=== PATIENT | male | born 1940 | race Caucasian/White ===

== ENCOUNTER → 2016-09-10 | Outpatient (CLI) | payer OTHER ==
[2016-04-08 20:31] VITALS: BP 119/77
[~2016-09-10] MED LIST: NS 100 ML IV 100 ML IV ONE
[2016-09-10 08:57] LABS: CREATININE 0.97 mg/dL (0.70-1.30)
--- NOTE | 2016-09-10 11:46 | CT ---
HISTORY: Abnormal weight loss Study: CT abdomen pelvis with contrast Comparison: CT chest March 26, 2016, May 27, 2015 Technique: Axial post-contrast images with coronal and sagittal reformats. Dose reduction procedures were used with MA/kv adjusted for body size. Findings: Bibasilar fibrotic lung changes appear to be present. The liver is normal in size and configuration without significant focal space-occupying disease. There is a well-marginated nonenhancing low-atten uation 7.8 x 7.1 by 7 centimeter cystic lesion in the dome of the right lobe of the liver. This like ly represents a benign cyst and is unchanged when compared with prior chest examinations. Scattered smaller cysts are present. The spleen, adrenal glands, and pancreas are within normal limits. No opa que stones are visible within the gallbladder. The kidneys are unobstructed and without stones or ma sses. Bilateral simple cysts are present. No ureteral calculi are identified. No significant intrape ritoneal or retroperitoneal lymphadenopathy is identified. Calcific atherosclerotic changes present in the abdominal aorta where there is also a 3.15 by 2.56 centimeter saccular abdominal aortic aneur ysm just proximal to the bifurcation. There is some thrombus within it. There are no findings sugges tive of diverticulitis or colitis. No visible: Masses are identified. Examination of the pelvis demo nstrated no evidence for pelvic masses, pelvic fluid, or pelvic lymphadenopathy. No definite bladder abnormality is identified. No significant skeletal abnormality is identified. IMPRESSION: Large benign appearing stable right renal cysts with additional smaller surrounding cysts also uncha nged Bilateral renal cysts Saccular abdominal aortic aneurysm located just above the bifurcation and having a maximum diameter of 3.15 centimeters. Reported By:
== END ==
LOC: RAD 08:21
PROVIDERS: ATTEND Internal Medicine
DX: R63.4 Abnormal weight loss (principal)
CPT/HCPCS: 36415; 74177; 82565; 84520; A4222

== ENCOUNTER 2018-07-27 01:30 | Observation (INO) ==
[2018-07-27 01:53] VITALS: BMI 22.1
--- NOTE | 2018-07-27 02:58 | DR.CP ---
HPI Time Seen Time Seen by Provider: 07/27/18 02:56 PCP Primary Care Physician: HPI Comment HPI Comment: PATIENT IS 77YR OLD WHIITE MALE WITH HISTORY OF THORACIC AORTIC ANERYSM, COPD AND GERD THAT PRESENTED TO ED WITH CHEST PAIN. MEDS FOR IND IGESTION TRIED WITHOUT PAIN GOING AWAY. IN ED, PAIN SPONTAOUSLY RESOLVING. NO FEVER. PATIENT IS A SMOKER. Complaint Chief Complaint Doctor Comments: CHEST PAIN RADIATING TO STOMACH, BACK OF CHEST ANF RIGHT SHOULDER. Chief Complaint:: PT STATED HE HIS HURTING IN HIS STOMACH, RIGHT SHOULDER AND CHEST PAIN. Self Treatment fo Chief Complaint: PT HAS AN ANEURSYM IN HIS LOWER CHEST. TAKES XARELTO DAILY. Reviewed Nurses Notes Review: Yes Source History Provided: Patient and Family Member Mode of Arrival Mode of Arrival: Ambulatory Timing Onset of Chief Complaint: 07/27/18 Came on: Suddenly Pain: Present Now Duration Duration: Constant Duration: Hours Location Location of Chest Pain: Chest (lower substrenal and epigastric area.) Chest Pain Radiation Location: Right Arm and Abdomen Context Onset: At rest Cardiac Risk Factors: Smoker PE Risk Factors: None History of: None Prehospital Care: None Quality Quality: Pressure like and Heavy Severity Severity: Moderate Modifying Factors Worsens: Movement Impoves: Rest Associated Signs and Symptoms Associated Signs and Symptoms: None PMH PMH Past Medical History: Yes Past Medical History: Dementia Past Surgical History: Yes Surgical History: Appendectomy and Tonsillectomy Past Surgical History Comment: SKIN CANCER SURGERY Family History History of Family Medical Conditions: No Social History Does patient currently use any type of tobacco product: Yes Have you used tobacco products in the last 12 months: Yes Type of Tobacco Use: Cigarettes Does any household member use tobacco: No Alcohol Use: None Do you use any recreational Drugs:: No Lives With: Spouse Lives Where: Home infectious screening In the last 2 months have you had wt loss of >10#?: NO Have you had fever, night sweats or hemotysis?: No Have you traveled outside the country in the last 6 months?: No ROS Review of Systems Constitutional: Weakness Eyes: No Symptoms Reported ENTM: No Symptoms Reported Respiratoy: No Symptoms Reported Cardiovascular: No Symptoms Reported Gastrointestinal/Abdominal: No Symptoms Reported Genitourinary: No Symptoms Reported Neurological: Weakness Musculoskeletal: Shoulder (RT SHOULDER PAIN.) Integumentary: Change in Color and Other (SKIN CANCER WITH SKIN LESIONS.) Hematologic/Lymphatic: Easy Bruising Endocrine: Decreased Appetite Psychiatric: No Symptoms Reported All Other Systems: Reviewed and Negative Unable to Obtain Due To: Dementia PE Vitals Vitals: Temperature 97.6 F Pulse Rate 80 Respiratory Rate 18 Blood Pressure 107/68 O2 Sat by Pulse Oximetry 93 General Limitations: No Limitations General Appearance: Alert and In No Apparent Distress Head Head Exam: Normal Inspection Eyes Eye exam: Normal Appearance ENT ENT Exam: Normal Exam Chest Chest Inspection: Normal Inspection and Symmetric Chest Wall Rise Respiratory Respiratory Exam: Normal Lung Sounds Bilat Respiratory Exam: Bilateral: Rhonchi, Left: Rhonchi, Right: Rhonchi and Lower: Rhonchi Cardiovascular Cardiovascular Exam: Regular Rate and Normal Rhythm Pulse: Normal Edema: Normal Abdominal Exam Abdominal Exam: Normal Inspection, Normal Bowel Sounds and Soft Extremities Extremities Exam: Normal Inspection Back Back Exam: Normal Inspection Neurologic Neurological Exam: Alert, Oriented X3 and CN II-XII Intact; negative Motor Sensory Deficit Psychiatric Psychiatric Exam: Normal Affect and Normal Mood Skin Skin Exam: Warm, Dry, Intact and Normal Color MDM Additional Information Additional Information Obtained From: Old Records and Family Differential Diagnosis Differential Diagnosis: Angina, Chest Wall Pain, CHF, Costochondritis, Myocardial Infarction, Pericarditis, Pneumonia and Pneumothorax COURSE Treatment Treatment: SEE ORDERS. Education/Counseling Education/Counseling: Patient and Family Educated On: Diagnosis ROR Labs Reviewed Laboratory Results Reviewed?: Yes Result Diagrams: 07/27/18 03:09 07/27/18 03:09 Laboratory: WBC 10.2 X10^3/uL (3.6-10.0) H 07/27/18 03:09 RBC 5.82 X10^6/uL (4.7-6.0) 07/27/18 03:09 Hgb 16.4 g/dL (13.5-18.0) 07/27/18 03:09 Hct 48.8 % (42.0-54.0) 07/27/18 03:09 MCV 83.8 fL (80.0-100.0) 07/27/18 03:09 MCH 28.1 pg (27.0-34.0) 07/27/18 03:09 MCHC 33.6 g/dL (33.0-35.0) 07/27/18 03:09 RDW 14.8 % (11.6-16.5) 07/27/18 03:09 Plt Count 246 X10^3/uL (150.0-450.0) 07/27/18 03:09 MPV 8.8 fL (7.4-11.0) 07/27/18 03:09 Neut % (Auto) 84.2 % (42.0-75.0) H 07/27/18 03:09 Lymph % (Auto) 7.4 % (21.0-51.0) L 07/27/18 03:09 Elliott % (Auto) 7.5 % (0.0-13.0) 07/27/18 03:09 Eos % (Auto) 0.4 % (0.9-2.9) L 07/27/18 03:09 Baso % (Auto) 0.5 % (0.2-1.0) 07/27/18 03:09 Neut # (Auto) 8.6 x10^3/uL (2.2-4.8) H 07/27/18 03:09 Lymph # (Auto) 0.8 X10^3/uL (1.3-2.9) L 07/27/18 03:09 Elliott # (Auto) 0.8 x10^3/uL (0.3-0.8) 07/27/18 03:09 Eos # (Auto) 0.0 x10^3/uL (0.0-0.2) 07/27/18 03:09 Baso # (Auto) 0.1 X10^3/uL (0.0-0.1) 07/27/18 03:09 Absolute Nucleated RBC 0.2 /100WBC 07/27/18 03:09 Sodium 141 mmol/L (136-145) 07/27/18 03:09 Corrected Sodium 142 mmol/L (136-145) 07/27/18 03:09 Potassium 3.9 mmol/L (3.5-5.1) 07/27/18 03:09 Chloride 103 mmol/L (98-107) 07/27/18 03:09 Carbon Dioxide 28.4 mmol/L (21-32) 07/27/18 03:09 BUN 12 mg/dL (7-18) 07/27/18 03:09 Creatinine 1.10 mg/dL (0.70-1.30) 07/27/18 03:09 Est GFR (MDRD) Af Amer > 60 (>60) 07/27/18 03:09 Est GFR (MDRD) Non-Af > 60 (>60) 07/27/18 03:09 Glucose 150 mg/dL (65-99) H 07/27/18 03:09 Calcium 8.2 mg/dL (8.5-10.1) L 07/27/18 03:09 Corrected Calcium 8.9 mg/dL (8.5-10.1) 07/27/18 03:09 Total Bilirubin 0.60 mg/dL (0.2-1.0) 07/27/18 03:09 AST 60 Units/L (15-37) H 07/27/18 03:09 ALT 35 Units/L (12-78) 07/27/18 03:09 Alkaline Phosphatase 105 Units/L (46-116) 07/27/18 03:09 Creatine Kinase 82 Units/L (39-308) 07/27/18 03:09 CK-MB (CK-2) < 1.0 ng/mL (0-4.0) 07/27/18 03:09 CK/CKMB % Calc 1.2 % (<4) 07/27/18 03:09 Troponin I 0.02 ng/mL (0-1.5) 07/27/18 03:09 Total Protein 7.0 g/dL (6.4-8.2) 07/27/18 03:09 Albumin 3.1 g/dL (3.4-5.0) L 07/27/18 03:09 Globulin 3.9 g/dL (2.5-4.5) 07/27/18 03:09 Albumin/Globulin Ratio 0.8 Ratio (1.1-2.1) L 07/27/18 03:09 XRAY XRAY Interpreted by: Radiologist XRAY Findings: 4.2CM STABLE ASCENDING AORTIC ANEURYSM WITHOUT DISSECTION. ADVANCE EMPHYSEM EKG Rate: 60 Norris: LAD Rhythm: NSR Block: 1 Hypertrophy: None ST: Normal
[2018-07-27 03:23] LABS: BASOPHILS # (AUTO) 0.1 X10^3/uL (0.0-0.1); BASOPHILS % (AUTO) 0.5 % (0.2-1.0); EOSINOPHILS % (AUTO) 0.4 % (0.9-2.9); HEMATOCRIT 48.8 % (42.0-54.0); HEMOGLOBIN 16.4 g/dL (13.5-18.0); LYMPHOCYTES # (AUTO) 0.8 X10^3/uL (1.3-2.9); LYMPHOCYTES % (AUTO) 7.4 % (21.0-51.0); MEAN CORPUSCULAR HEMOGLOBIN 28.1 pg (27.0-34.0); MEAN CORPUSCULAR HGB CONC 33.6 g/dL (33.0-35.0); MEAN CORPUSCULAR VOLUME 83.8 fL (80.0-100.0); MEAN PLATELET VOLUME 8.8 fL (7.4-11.0); MONOCYTES # (AUTO) 0.8 x10^3/uL (0.3-0.8); MONOCYTES % (AUTO) 7.5 % (0.0-13.0); NEUTROPHILS # (AUTO) 8.6 x10^3/uL (2.2-4.8); NEUTROPHILS % (AUTO) 84.2 % (42.0-75.0); PLATELET COUNT 246 X10^3/uL (150.0-450.0); RED BLOOD COUNT 5.82 X10^6/uL (4.7-6.0); RED CELL DISTRIBUTION WIDTH 14.8 % (11.6-16.5); WHITE BLOOD COUNT 10.2 X10^3/uL (3.6-10.0)
[2018-07-27 03:35] LABS: BLOOD UREA NITROGEN 12 mg/dL (7-18); CALCIUM 8.2 mg/dL (8.5-10.1); CARBON DIOXIDE 28.4 mmol/L (21-32); CHLORIDE 103 mmol/L (98-107); COR NA(FOR HYPERGLY) 142 mmol/L (136-145); SODIUM 141 mmol/L (136-145); TROPONIN I 0.02 ng/mL (0-1.5); eGFR NON BLACK RACES > 60 (>60)
[2018-07-27 03:40] LABS: ALANINE AMINOTRANSFERASE 35 Units/L (12-78); ALBUMIN 3.1 g/dL (3.4-5.0); ALKALINE PHOSPHATASE 105 Units/L (46-116); ASPARTATE AMINO TRANSFERASE 60 Units/L (15-37); CKMB % 1.2 % (<4); COR CA(FOR HYPOALB) 8.9 mg/dL (8.5-10.1); CREATINE KINASE 82 Units/L (39-308); CREATINE KINASE MB < 1.0 ng/mL (0-4.0)
[2018-07-27] MEDS ORDERED: NS 100 ML IV + SPIKE MINIBAG* 100 ML ONE (04:47)
--- NOTE | 2018-07-27 05:32 | CT ---
CTA chest Indication: Chest pains Technique: Helical CT images of the chest were obtained with IV contrast. Reformatted images in the coronal and sagittal planes and 3D MIP images were also generated for review. Comparison: 03/26/2016 Findings: Contrast bolus timing is adequate for detection of PTE. No pulmonary thromboembolus is identified. There is no pulmonary arterial dilatation or evidence of right heart strain. Heart is mildly enlarged without significant pericardial effusion. Mild coronary atherosclerotic disease noted. There is a stable ascending thoracic aortic aneurysm, measuring 4.2 cm AP. No dissection is identified. The central airways are patent. There is no mediastinal bulky hilar lymphadenopathy. There is moderately advanced upper lobe predominant centrilobular emphysema. Chronic interstitial changes of the bilateral lung bases also noted. The lungs are otherwise clear without focal consolidation. No pleural effusion or pneumothorax is identified. Limited images of the upper abdomen demonstrate a stable large cyst within the right hepatic lobe. Review of bone windows demonstrate diffuse osteopenia and stable chronic compression fracture of the T12 vertebral body. No aggressive osseous lesions are identified. Impression: No PTE or acute cardiopulmonary abnormality. Stable 4.2 cm ascending thoracic aortic aneurysm without dissection. Advanced emphysema and additional chronic findings as above. Reported By:
[2018-07-27] MEDS: NS 1000 ML 1,000 ML IV SCH (10:06)
[2018-07-27] MEDS: PEPCID 20 MG IV PREMIX* 20 MG/50 ML BAG IV SCH ×2 (10:06→21:01)
[2018-07-27 10:39] LABS: CKMB % 1.6 % (<4); CREATINE KINASE 63 Units/L (39-308); TROPONIN I < 0.02 ng/mL (0-1.5)
--- NOTE | 2018-07-27 15:32 | DR.H&P ---
H&P - History & Physical for Day of: H&P Date: 07/27/18 - Chief Complaint Chief Complaint: CHEST PAIN - History of Present Illness History of Present Illness: 77 WM ER ADMISSON AFTER PRESENTING WITH CO CHEST PAIN. PT FAMILY DENIES HE HAS HX OF CAD, BUT PT CO PAIN SO SEVERE HE ASKED TO COME TO ER. PT DID TAKE "SODA WATER" EARILER WITH INCREASED BELCHING WITH SOME RELIEF. FAMILY REPORTS HE HAS HX OF STOMACH ULCER AND PT CO PAIN LIKE KNOT IN TOP OF STOMACH, SQUEEZING PRESSURE. PT ADMITTED TO [facility]. - Past Medical History Past Medical History: Anxiety, Dementia, GERD - Past Surgical History Surgical History: Appendectomy, Tonsillectomy - Family History Family Medical History: Cancer, ID, Sudden Cardiac , Hypertension - Social History Does patient currently use any type of tobacco product: Yes Have you used tobacco products in the last 12 months: Yes Type of Tobacco Use: Cigarettes How many years tobacco product used: 60 Does any household member use tobacco: No Alcohol Use: None Drug Use: None - Medications Home Medications: codeine Allergy (Verified 07/27/18 02:31) Sulfa (Sulfonamide Antibiotics) Allergy (Verified 07/27/18 02:31) CONTINUE taking the following medications anastrozole 1 mg PO DAILY 07/27/18 [History] ciprofloxacin HCl 500 mg PO BID 07/27/18 [History] cyproheptadine 4 mg PO BID 07/27/18 [History] duloxetine 30 mg PO HS 07/27/18 [History] finasteride 5 mg PO DAILY 07/27/18 [History] memantine 10 mg PO BID 07/27/18 [History] omeprazole 40 mg PO DAILY 07/27/18 [History] rivaroxaban [Xarelto] 10 mg PO DAILY 07/27/18 [History] - Review of Systems Constitutional: No Symptoms Reported Eyes: No Symptoms Reported ENT: No Symptoms Reported Respiratory: No Symptoms Reported Cardiovascular: Chest Pain Gastrointestinal: Abdominal Pain Genitourinary: No Symptoms Reported Musculoskeletal: No Symptoms Reported Skin: No Symptoms Reported Neurological: Weakness, Other (DIZZINESS ) - Physical Exam Vital Signs: Temperature 97.6 F Pulse Rate [Brachial] 60 Pulse Rate 80 Respiratory Rate 20 Blood Pressure [Right Arm] 136/73 Blood Pressure 107/68 O2 Sat by Pulse Oximetry 93 Oriented: Normal Eyes: Normal Ear: Normal Respiratory: RLL Diminished, LLL Diminished Cardiovascular: Normal. negative: Edema : Normal Auscultation: Bowel Sounds: Normal Palpation: Normal Tenderness: RUQ, Epigastric Skin: Decreased Turgur Musculoskeletal: Normal Psychiatric: Anxiety Affect: Anxious Speech Pattern: Clear, Appropriate - Assessment/Plan (1) Chest pain Status: Acute Plan: ADMIT, SERIAL CE AND EKG. BLOOD PRESSURE CONTROL. VERIFY HOME MEDICATION. PEPCID, NAUSEA CONTROL. CXR ON ADMISSION, OCCULT STOOL, GB US ON SATURDAY, NAUSEA CONTROL (2) GERD (gastroesophageal reflux disease) Status: Acute (3) Epigastric pain Status: Acute - Allergies Allergies/Adverse Reactions: Allergies Allergy/AdvReac Type Severity Reaction Status Date / Time codeine Allergy Verified 07/27/18 02:31 Sulfa (Sulfonamide Allergy Verified 07/27/18 02:31 Antibiotics)
[2018-07-27 15:55] LABS: AMYLASE 80 Units/L (25-115); LIPASE 164 Units/L (73-393)
[2018-07-27] MEDS: NAMENDA TAB 10 MG PO SCH ×2 (15:55→21:00)
[2018-07-27 16:08] LABS: CREATINE KINASE 59 Units/L (39-308); CREATINE KINASE MB < 1.0 ng/mL (0-4.0); TROPONIN I 0.02 ng/mL (0-1.5)
[2018-07-27 16:14] LABS: CKMB % 1.7 % (<4)
[2018-07-27] MEDS ORDERED: PROSCAR PO SCH (21:00)
[2018-07-27] MEDS: PERIACTIN TAB 4 MG PO SCH (21:00)
[2018-07-28 05:22] LABS: BASOPHILS # (AUTO) 0.1 X10^3/uL (0.0-0.1); BASOPHILS % (AUTO) 1.3 % (0.2-1.0); EOSINOPHILS # (AUTO) 0.1 x10^3/uL (0.0-0.2); EOSINOPHILS % (AUTO) 1.8 % (0.9-2.9); HEMATOCRIT 43.4 % (42.0-54.0); HEMOGLOBIN 14.7 g/dL (13.5-18.0); LYMPHOCYTES # (AUTO) 1.6 X10^3/uL (1.3-2.9); MEAN CORPUSCULAR HEMOGLOBIN 28.2 pg (27.0-34.0); MEAN CORPUSCULAR HGB CONC 33.8 g/dL (33.0-35.0); MEAN CORPUSCULAR VOLUME 83.4 fL (80.0-100.0); MEAN PLATELET VOLUME 8.9 fL (7.4-11.0); MONOCYTES # (AUTO) 0.7 x10^3/uL (0.3-0.8); MONOCYTES % (AUTO) 13.3 % (0.0-13.0); NEUTROPHILS # (AUTO) 2.9 x10^3/uL (2.2-4.8); NEUTROPHILS % (AUTO) 53.6 % (42.0-75.0); PLATELET COUNT 236 X10^3/uL (150.0-450.0); RED BLOOD COUNT 5.21 X10^6/uL (4.7-6.0); RED CELL DISTRIBUTION WIDTH 15.1 % (11.6-16.5); WHITE BLOOD COUNT 5.3 X10^3/uL (3.6-10.0)
[2018-07-28 05:37] LABS: ALANINE AMINOTRANSFERASE 24 Units/L (12-78); ALBUMIN 2.6 g/dL (3.4-5.0); ALKALINE PHOSPHATASE 87 Units/L (46-116); ASPARTATE AMINO TRANSFERASE 23 Units/L (15-37); BLOOD UREA NITROGEN 12 mg/dL (7-18); CALCIUM 7.8 mg/dL (8.5-10.1); CARBON DIOXIDE 27.1 mmol/L (21-32); CHLORIDE 105 mmol/L (98-107); COR CA(FOR HYPOALB) 8.9 mg/dL (8.5-10.1); CREATININE 0.95 mg/dL (0.70-1.30); SODIUM 140 mmol/L (136-145); eGFR NON BLACK RACES > 60 (>60)
[2018-07-28] MEDS: PERIACTIN TAB 4 MG PO SCH (08:58)
[2018-07-28] MEDS: NAMENDA TAB 10 MG PO SCH (08:58)
[2018-07-28] MEDS: PEPCID 20 MG IV PREMIX* 20 MG/50 ML BAG IV SCH (08:58)
[2018-07-28] MEDS ORDERED: PriLOSEC PO SCH (09:00)
[2018-07-28] MEDS ORDERED: ARIMIDEX PO SCH (09:00)
[2018-07-28] MEDS ORDERED: PROSCAR PO SCH (09:00)
[2018-07-28] MEDS: NS 1000 ML 1,000 ML IV SCH (09:02)
[2018-07-28 12:49] VITALS: BP 122/77
[2018-07-28] MEDS ORDERED: CYMBALTA PO SCH (21:00)
--- NOTE | 2018-08-14 00:10 | DR.CARTERD ---
- Discharge Summary for: Discharge Summary for Date of:: 07/28/18 - Admission Date Date of Admission: 07/27/18 - Admission Diagnoses Admission Diagnosis: (1) Chest pain (2) GERD (gastroesophageal reflux disease) (3) Epigastric pain - Discharge Date Discharge Date: 07/28/18 - Discharge Diagnoses Discharge Diagnosis: (1) Chest pain (2) GERD (gastroesophageal reflux disease) (3) Epigastric pain - Hospital Course Hospital Course: DAY ONE, PATIENT IS A 77 YEAR OLD WM ER ADMISSON AFTER PRESENTING WITH CO CHEST PAIN. PT FAMILY DENIED HE HAS HX OF CAD, BUT PT CO PAIN SO SEVERE HE ASKED TO COME TO ER. PT DID TAKE "SODA WATER" EARILER WITH INCREASED BELCHING WITH SOME RELIEF. FAMILY REPORTED HE HAS HX OF STOMACH ULCER AND PT CO PAIN LIKE KNOT IN TOP OF STOMACH, SQUEEZING PRESSURE. PT ADMITTED TO [facility]. DAY TWO, PATIENT LAYING IN BED ALERT AND ORIENTED ON MORNING ROUNDS. PATIENT DENIED CHEST PAIN AND REPORTED SYMPTOMS HAD RESOLVED. CARDIA ENZYMES HAVE BEEN NEGATIVE. ABNORMAL LAB VALUES INCLUDED CALCIUM 7.8. VITALS WERE 97.3, 60, 20, 93% ON RA, 128/79. WE PLANNED FOR DISCHARGE. INSTRUCTIONS FOR MEDICATIONS AND FOLLOW UP WERE DISCUSSED WITH PATIENT AND FAMILY, BOTH VOICED UNDERSTANDING. PATIENT DISCHARGED HOME IN STABLE CONDITION WITH FAMILY. - Discharge Medications Discharge Medications: Home Medication List Xarelto 10 mg PO DAILY 07/27/18 [History] anastrozole 1 mg PO DAILY 07/27/18 [History] ciprofloxacin HCl 500 mg PO BID 07/27/18 [History] cyproheptadine 4 mg PO BID 07/27/18 [History] duloxetine 30 mg PO HS 07/27/18 [History] finasteride 5 mg PO DAILY 07/27/18 [History] memantine 10 mg PO BID 07/27/18 [History] omeprazole 40 mg PO DAILY 07/27/18 [History] Prescriptions: - Discharge Disposition Discharge Disposition: PATIENT TO FOLLOW UP IN OUR OFFICE IN ONE WEEK.
== END 2018-07-28 14:00 | disposition home or self-care (01) ==
LOC: ER 01:38 → MED/SURG 01:38
PROVIDERS: ADMIT Internal Medicine; ATTEND Internal Medicine
DX: R26.89 Other abnormalities of gait and mobility; R07.89 Other chest pain; R10.13 Epigastric pain; J43.8 Other emphysema; Z87.19 Personal history of other diseases of the digestive system; F41.8 Other specified anxiety disorders; K21.9 Gastro-esophageal reflux disease without esophagitis; R94.31 Abnormal electrocardiogram [ECG] [EKG]
CPT/HCPCS: 36415; 71260; 76705; 80053; 82150; 82550; 82553; 83690; 84484; 85025; 93005; 94760; 96365; 96367; 96374; 97162; 97166; 99218; 99284; A4222; S0028; S0138; S0170; G0378; J7030; J7050

== ENCOUNTER 2018-11-24 12:52 | Inpatient (IN) ==
[2018-11-24] MEDS ORDERED: PHARMACY CONSULT - DOSE _____ XX SCH (14:00)
[2018-11-24 14:36] LABS: BASOPHILS % (AUTO) 0.8 % (0.2-1.0); EOSINOPHILS % (AUTO) 0.5 % (0.9-2.9); HEMATOCRIT 46.3 % (42.0-54.0); HEMOGLOBIN 15.5 g/dL (13.5-18.0); LYMPHOCYTES % (AUTO) 17.2 % (21.0-51.0); MEAN CORPUSCULAR HEMOGLOBIN 28.4 pg (27.0-34.0); MEAN CORPUSCULAR HGB CONC 33.5 g/dL (33.0-35.0); MEAN CORPUSCULAR VOLUME 84.6 fL (80.0-100.0); MEAN PLATELET VOLUME 8.5 fL (7.4-11.0); MONOCYTES # (AUTO) 0.6 x10^3/uL (0.3-0.8); MONOCYTES % (AUTO) 9.4 % (0.0-13.0); NEUTROPHILS # (AUTO) 4.2 x10^3/uL (2.2-4.8); NEUTROPHILS % (AUTO) 72.1 % (42.0-75.0); PLATELET COUNT 200 X10^3/uL (150.0-450.0); RED BLOOD COUNT 5.48 X10^6/uL (4.7-6.0); RED CELL DISTRIBUTION WIDTH 15.2 % (11.6-16.5); WHITE BLOOD COUNT 5.9 X10^3/uL (3.6-10.0)
[2018-11-24 14:50] LABS: ALANINE AMINOTRANSFERASE 12 Units/L (12-78); ALBUMIN 2.7 g/dL (3.4-5.0); ALKALINE PHOSPHATASE 87 Units/L (46-116); ASPARTATE AMINO TRANSFERASE 19 Units/L (15-37); BLOOD UREA NITROGEN 11 mg/dL (7-18); CALCIUM 8.5 mg/dL (8.5-10.1); CARBON DIOXIDE 24.2 mmol/L (21-32); CHLORIDE 103 mmol/L (98-107); COR CA(FOR HYPOALB) 9.5 mg/dL (8.5-10.1); COR NA(FOR HYPERGLY) 138 mmol/L (136-145); CREATININE 1.17 mg/dL (0.70-1.30); SODIUM 137 mmol/L (136-145); TOTAL PROTEIN 7.5 g/dL (6.4-8.2); eGFR NON BLACK RACES > 60 (>60)
[2018-11-24] MEDS ORDERED: MICRO K EXTEN CAP 10 MEQ PO PRN (15:00)
[2018-11-24] MEDS ORDERED: POTASSIUM CHL 60 MEQ/NS 0.45% 500 ML IV PRN (15:00)
[2018-11-24] MEDS ORDERED: KLOR-CON PO PRN (15:00)
[2018-11-24] MEDS ORDERED: POTASSIUM CHLORIDE LIQ 20 MEQ UDC PO PRN (15:00)
[2018-11-24] MEDS ORDERED: POTASSIUM CHL 40 MEQ/NS 0.45% 500 ML IV PRN (15:00)
[2018-11-24] MEDS ORDERED: K-RIDER 10 MEQ/NS 100 ML 10 MEQ/100 ML BAG IV PRN (15:00)
[2018-11-24] MEDS ORDERED: NS 1/2 1000 ML IV 1,000 ML ONE (15:07)
[2018-11-24] MEDS: NS 1/2 1000 ML IV 1,000 ML IV SCH (15:30)
[2018-11-24] MEDS: LEVAQUIN PREMIX IV 500 MG 500 MG/100 ML BAG IV SCH (15:30)
[2018-11-24] MEDS: ROBITUSSIN DM PO SCH ×2 (16:04→20:46)
[2018-11-24] MEDS: VSL#3 PO SCH (16:04)
[2018-11-24] MEDS ORDERED: SALINE 3% 15 ML NEB TX NEB ONE (16:41)
--- NOTE | 2018-11-24 17:19 | RAD ---
History: Pneumonia and cough Exam: Chest x-ray Comparison: None Technique: PA and lateral Findings: The heart is normal. The pulmonary vessels are normal. The lungs are mildly hyperinflated and emphysematous. There are mild linear densities scattered along the lung bases. No consolidation or effusion is seen. The bones are intact. IMPRESSION: Chronic obstructive lung changes with mild discoid atelectasis or scarring along the lung. Reported By:
[2018-11-24] MEDS: XOPENEX 1.25 MG/3 ML NEBULE NEB SCH (17:40)
[2018-11-24] MEDS: FORTAZ or TAZICEF VIAL INJ 1 G in NS 100 ML IV + SPIKE MINIBAG* 100 ML IV SCH (22:10)
[2018-11-25] MEDS: XOPENEX 1.25 MG/3 ML NEBULE NEB SCH ×5 (01:35→19:01)
[2018-11-25 04:28] LABS: BILIRUBIN,URINE 1+ (NEGATIVE); BLOOD/HEMOGLOBIN,URINE 1+ (NEGATIVE); GLUCOSE, URINE NEGATIVE (NEGATIVE); KETONES,URINE NEGATIVE (NEGATIVE); LEUKOCYTE ESTERASE ,URINE 1+ (NEGATIVE); NITRITES,URINE NEGATIVE (NEGATIVE); PROTEIN,URINE 2+ (NEGATIVE); UROBILINOGEN,URINE 2+ (NORMAL)
[2018-11-25 04:46] LABS: APPEARANCE,URINE CLEAR (CLEAR); COLOR,URINE AMBER (YELLOW)
[2018-11-25 04:47] LABS: BACTERIA,URINE NEGATIVE /HPF (NEGATIVE); RBC,URINE 0-2 /HPF (NONE SEEN); SQUAMOUS EPITHELIAL CELL,UR NEGATIVE /HPF (NEGATIVE)
[2018-11-25] MEDS ORDERED: NS 1/2 1000 ML IV 1,000 ML ONE (05:16)
[2018-11-25] MEDS: NS 1/2 1000 ML IV 1,000 ML IV SCH ×2 (05:31→18:04)
[2018-11-25] MEDS: FORTAZ or TAZICEF VIAL INJ 1 G in NS 100 ML IV + SPIKE MINIBAG* 100 ML IV SCH ×3 (05:32→22:14)
[2018-11-25 05:40] LABS: BASOPHILS % (AUTO) 0.6 % (0.2-1.0); EOSINOPHILS # (AUTO) 0.1 x10^3/uL (0.0-0.2); HEMATOCRIT 41.3 % (42.0-54.0); HEMOGLOBIN 14.2 g/dL (13.5-18.0); LYMPHOCYTES # (AUTO) 1.3 X10^3/uL (1.3-2.9); LYMPHOCYTES % (AUTO) 25.6 % (21.0-51.0); MEAN CORPUSCULAR HEMOGLOBIN 28.5 pg (27.0-34.0); MEAN CORPUSCULAR HGB CONC 34.3 g/dL (33.0-35.0); MEAN CORPUSCULAR VOLUME 83.1 fL (80.0-100.0); MEAN PLATELET VOLUME 8.8 fL (7.4-11.0); MONOCYTES # (AUTO) 0.9 x10^3/uL (0.3-0.8); NEUTROPHILS # (AUTO) 2.8 x10^3/uL (2.2-4.8); NEUTROPHILS % (AUTO) 54.8 % (42.0-75.0); PLATELET COUNT 168 X10^3/uL (150.0-450.0); RED BLOOD COUNT 4.97 X10^6/uL (4.7-6.0); RED CELL DISTRIBUTION WIDTH 14.9 % (11.6-16.5); WHITE BLOOD COUNT 5.1 X10^3/uL (3.6-10.0)
[2018-11-25 05:51] LABS: ALANINE AMINOTRANSFERASE 13 Units/L (12-78); ALBUMIN 2.4 g/dL (3.4-5.0); ALKALINE PHOSPHATASE 77 Units/L (46-116); ASPARTATE AMINO TRANSFERASE 17 Units/L (15-37); BLOOD UREA NITROGEN 10 mg/dL (7-18); CALCIUM 8.3 mg/dL (8.5-10.1); CARBON DIOXIDE 23.3 mmol/L (21-32); CHLORIDE 104 mmol/L (98-107); COR CA(FOR HYPOALB) 9.6 mg/dL (8.5-10.1); CREATININE 1.01 mg/dL (0.70-1.30); SODIUM 137 mmol/L (136-145); TOTAL PROTEIN 6.8 g/dL (6.4-8.2); eGFR NON BLACK RACES > 60 (>60)
--- NOTE | 2018-11-25 06:26 | RAD ---
HISTORY: Cough, pneumonia Study: Chest AP portable Comparison: 11/24/2018, CT chest 07/27/2018 Findings: The heart is within normal limits in size. The cliff are normal. The aorta is calcified the cliff are normal. The lungs are free of acute alveolar infiltrates. Chronic interstitial lung changes are stable. No pleural effusions are identified. The bony thorax is unremarkable. IMPRESSION: Stable chronic interstitial lung changes No acute infiltrates Reported By:
[2018-11-25] MEDS: K-DUR TAB 20 MEQ PO PRN (06:29)
[2018-11-25 07:43] VITALS: BMI 20.6
[2018-11-25] MEDS: LEVAQUIN PREMIX IV 500 MG 500 MG/100 ML BAG IV SCH (08:02)
[2018-11-25] MEDS: VSL#3 PO SCH (08:02)
[2018-11-25] MEDS: ROBITUSSIN DM PO SCH ×4 (08:02→20:54)
[2018-11-25] MEDS: MAGNESIUM SULFATE 1 GRAM/100 mL PREMIX 1 GM/100 ML BAG IV PRN ×2 (10:15→13:00)
[2018-11-25] MEDS ORDERED: NS 100 ML IV 100 ML ONE (11:29)
[2018-11-25] MEDS: COLACE CAP 100 MG PO PRN ×2 (11:31→20:54)
[2018-11-25] MEDS: MILK OF MAGNESIA PO PRN ×2 (11:31→20:54)
[2018-11-25 11:38] LABS: ERYTHROCYTE SEDIMENTATION RATE 15 MM/HOUR (0-15)
--- NOTE | 2018-11-25 12:41 | VAS ---
HISTORY: Bilateral leg pain. Prior history of DVTs Study: Bilateral lower extremity deep vein Doppler ultrasound Comparison: No priors TECHNIQUE: Multiple middleton scale and color flow Doppler images of the deep venous system were obtained of the right and left lower extremity. FINDINGS: The deep venous system of the right and left lower extremities were evaluated from the level of the common femoral vein through the popliteal vein. Normal color flow and augmentation can be observed. In addition, normal compression is seen throughout the deep venous system. IMPRESSION: 1. Negative for DVT. Reported By:
--- NOTE | 2018-11-25 12:43 | CT ---
CT ANGIOGRAPHY OF THE CHEST CLINICAL HISTORY: 78-year-old male with shortness of breath and history of COPD. COMPARISON: Chest radiograph this date, CT chest 07/27/2018. TECHNIQUE: CT angiogram of the chest was performed following the uncomplicated administration of 80 mL Omnipaque 350 intravenous contrast as per routine pulmonary embolus protocol. Coronal and Sagittal reformats provided. MIP reformats are submitted for review. Dose reduction techniques including Automated Exposure Control (AEC) and adjustment of mA and kV were utilized. FINDINGS: Multiple filling defects within the segmental pulmonary arterial branches extending into the subsegmental branches throughout the right and left hemithorax. There is no thoracic aortic dissection. Stable fusiform aneurysmal ectasia of the ascending aorta. Cardiomegaly with small pericardial effusion and atherosclerotic calcification of the coronary vessels. There is no axillary or mediastinal lymphadenopathy. Diffuse paraseptal and centrilobular emphysematous change with small volume honeycombing in the bilateral lung bases. Evaluation of the lung parenchyma demonstrates no pulmonary nodules, masses, or airspace opacities. The trachea and mainstem bronchi are patent. There is no pleural effusion or pneumothorax. Unchanged large simple appearing cyst right hepatic lobe with no acute abnormality in the imaged upper abdomen. The arteriovascular structures are within normal limits. Soft tissues are normal. Chronic degenerative change of the imaged spine with chronic wedging anteriorly T12. IMPRESSION: 1. Diffuse segmental and subsegmental pulmonary emboli throughout the pulmonary arterial tree of the right and left lung. 2. Severe COPD. 3. Other chronic findings as above. Reported By:
[2018-11-25] MEDS ORDERED: XARELTO PO SCH (13:00)
[2018-11-25] MEDS: PriLOSEC PO SCH (13:44)
[2018-11-25] MEDS: PROSCAR PO SCH (13:44)
[2018-11-25] MEDS: ARIMIDEX PO SCH (13:44)
[2018-11-25] MEDS ORDERED: SALINE 3% 15 ML NEB TX NEB ONE (14:25)
[2018-11-25] MEDS: PERIACTIN TAB 4 MG PO SCH (20:54)
[2018-11-25] MEDS: XARELTO PO SCH (20:54)
[2018-11-25] MEDS: NAMENDA TAB 10 MG PO SCH (20:54)
[2018-11-25] MEDS: CYMBALTA PO SCH (20:58)
[2018-11-26] MEDS: XOPENEX 1.25 MG/3 ML NEBULE NEB SCH ×5 (01:06→18:26)
[2018-11-26] MEDS: FORTAZ or TAZICEF VIAL INJ 1 G in NS 100 ML IV + SPIKE MINIBAG* 100 ML IV SCH ×3 (05:33→21:50)
[2018-11-26 05:46] LABS: BASOPHILS % (AUTO) 0.5 % (0.2-1.0); EOSINOPHILS # (AUTO) 0.1 x10^3/uL (0.0-0.2); EOSINOPHILS % (AUTO) 1.3 % (0.9-2.9); HEMATOCRIT 39.6 % (42.0-54.0); HEMOGLOBIN 13.5 g/dL (13.5-18.0); LYMPHOCYTES # (AUTO) 0.9 X10^3/uL (1.3-2.9); LYMPHOCYTES % (AUTO) 18.3 % (21.0-51.0); MEAN CORPUSCULAR HEMOGLOBIN 28.5 pg (27.0-34.0); MEAN CORPUSCULAR HGB CONC 34.2 g/dL (33.0-35.0); MEAN CORPUSCULAR VOLUME 83.4 fL (80.0-100.0); MEAN PLATELET VOLUME 8.8 fL (7.4-11.0); MONOCYTES # (AUTO) 0.8 x10^3/uL (0.3-0.8); MONOCYTES % (AUTO) 15.2 % (0.0-13.0); NEUTROPHILS # (AUTO) 3.2 x10^3/uL (2.2-4.8); NEUTROPHILS % (AUTO) 64.7 % (42.0-75.0); PLATELET COUNT 177 X10^3/uL (150.0-450.0); RED BLOOD COUNT 4.75 X10^6/uL (4.7-6.0)
[2018-11-26 05:57] LABS: ALANINE AMINOTRANSFERASE 12 Units/L (12-78); ALBUMIN 2.3 g/dL (3.4-5.0); ALKALINE PHOSPHATASE 75 Units/L (46-116); ASPARTATE AMINO TRANSFERASE 16 Units/L (15-37); BLOOD UREA NITROGEN 6 mg/dL (7-18); CALCIUM 7.6 mg/dL (8.5-10.1); CARBON DIOXIDE 25.8 mmol/L (21-32); CHLORIDE 104 mmol/L (98-107); CREATININE 0.91 mg/dL (0.70-1.30); MAGNESIUM 2.3 mg/dL (1.7-2.9); SODIUM 139 mmol/L (136-145); TOTAL PROTEIN 6.6 g/dL (6.4-8.2); eGFR NON BLACK RACES > 60 (>60)
[2018-11-26] MEDS ORDERED: NS 1000 ML 0 ML ONE (06:29)
[2018-11-26] MEDS ORDERED: NS 1/2 1000 ML IV 1,000 ML ONE (06:30)
[2018-11-26] MEDS: K-DUR TAB 20 MEQ PO PRN (06:32)
[2018-11-26] MEDS: NS 1/2 1000 ML IV 1,000 ML IV SCH ×4 (06:33→21:51)
--- NOTE | 2018-11-26 06:35 | RAD ---
HISTORY: Shortness of breath Study: Chest AP portable Comparison: 11/25/2018, plain film and chest CT Findings: The heart is within normal limits in size. The cliff are normal. The lungs are well inflated and free of acute alveolar infiltrates. Stable chronic interstitial lung changes are identified. No pleural effusions are identified. The bony thorax is unremarkable. IMPRESSION: Stable interstitial lung changes No acute infiltrates Reported By:
[2018-11-26] MEDS: VSL#3 PO SCH (09:02)
[2018-11-26] MEDS: NAMENDA TAB 10 MG PO SCH ×2 (09:02→21:50)
[2018-11-26] MEDS: PERIACTIN TAB 4 MG PO SCH ×2 (09:02→21:50)
[2018-11-26] MEDS: MILK OF MAGNESIA PO PRN (09:02)
[2018-11-26] MEDS: ROBITUSSIN DM PO SCH ×4 (09:03→21:50)
[2018-11-26] MEDS: ARIMIDEX PO SCH (09:03)
[2018-11-26] MEDS: LEVAQUIN PREMIX IV 500 MG 500 MG/100 ML BAG IV SCH (09:03)
[2018-11-26] MEDS: XARELTO PO SCH ×2 (09:03→21:50)
[2018-11-26] MEDS: COLACE CAP 100 MG PO PRN (09:03)
[2018-11-26] MEDS: PROSCAR PO SCH (09:03)
[2018-11-26] MEDS: PriLOSEC PO SCH (09:03)
--- NOTE | 2018-11-26 11:41 | DR.UPDATE ---
H&P Update History and Physical Update: History and Physical reviewed and patient examined. Changes noted: Yes with the following: PRESENTED TO THE OFFICE WITH COMPLAINTS OF WEAKNESS, SHORTNESS OF BREATH, COUGH, AND WEEZING. HE REPORTS A POOR APPETITE AND WEIGHT LOSS. HE WAS ADMITTED TO THE HOSPITAL FOR FURTHER EVALUATION AND TREAMTENT OF BRONCHOPNEUMONIA. ON ADMISSION, WE PLAN TO OBTAIN LABS, CHEST XRAY, AND WILL START HIM ON THE PNEUMONIA PROTOCOL WITH IV FOTAZ, IV LEVAQUIN, AND RESPIRATORY TREATMENTS. OTHERWISE, WE WILL FOLLOW UP WITH [facility] AND CONTINUE TO MONITOR. Prescription drug monitoring program results: PDMP reviewed and no concerns identified
[2018-11-26] MEDS: FLOMAX PO SCH (13:42)
--- NOTE | 2018-11-26 18:42 | PCM.PROG ---
Progress Note - Progress Note for Day of Date of Exam: 11/25/18 - Subjective Subjective: WAS ADMITTED YESTERDAY FOR TREATMENT OF BRONCHOPNEUMONIA, SHORTNESS OF BREATH, GENERALIZED WEAKNESS, AND DECREASED APPETITE. TODAY, HE IS ALERT AND ORIENTED, LYING IN BED ON MORNING ROUNDS. HE CONTINUES WITH COMPLAINTS OF SHORTNESS OF BREATH AND GENERALIZED WEAKNESS TODAY. ON EXAMINATION, HEART IS REGULAR IN RATE AND RHYTHM. BILATERAL LUNGS ARE NOTED WITH SCATTERED WHEEZING, DIMINISHED. ABDOMEN IS FLAT, SOFT, AND NON-TENDER. NORMAL BOWEL SOUNDS NOTED IN ALL QUADRANTS. HIS VITALS THIS MORNING ARE 98.1-91-20-94%-121/74. LABS WERE OBTAINED. ABNORMAL LAB VALUES INCLUDE THE FOLLOWING: HCT 41.3, CALCIUM 8.3, ALBUMIN 2.4. BLOOD CULTURES ARE PENDING. A CHEST XRAY WAS OBTAINED TODAY AND REVEALED: STABLE CHRONIC INTERSTITIAL LUNG CHANGES. NO ACUTE INFILTRATES. WE OBTAINED A CHEST CTA THIS MORNING. IT REVEALED: Diffuse segmental and subsegmental pulmonary emboli throughout the pulmonary arterial tree of the right and left lung. Severe COPD. HE IS CURRENTLY RECEIVING IV FLUIDS, FORTAZ IV, LEVAQUIN IV, AND RESPIRATORY TREATMENTS. TODAY, WE WILL START XARELTO 15MG PO BID. OTHERWISE, WE WILL CONTINUE WITH CURRENT PLAN OF CARE. WE PLAN TO FOLLOW UP WITH AM LABS AND CONTINUE TO MONITOR. - Past Medical Family Social History Past Med/Fam/Surg Hx: No changes since H&P Allergies: Allergies codeine Allergy (Verified 07/27/18 02:31) Sulfa (Sulfonamide Antibiotics) Allergy (Verified 07/27/18 02:31) - Review of Systems ROS: No change since H&P - Vital Signs and I&O's Vital Signs: Temperature 98.0 F Pulse Rate [Right Brachial] 87 Pulse Rate [Left Brachial] 86 Pulse Rate 87 Respiratory Rate 20 Blood Pressure [Left Arm] 123/71 Blood Pressure [Right Arm] 121/75 Blood Pressure 122/77 O2 Sat by Pulse Oximetry 96 Intake and Output: Intake & Output 11/24/18 11/25/18 11/26/18 11/27/18 11:59 11:59 11:59 11:59 Intake Total 840 / 840 840 / 840 520 / 520 Output Total 225 / 225 Balance 615 / 615 840 / 840 520 / 520 - Physical Exam Oriented: Normal Eyes: Normal Ear: Normal Nose: Normal Throat: Normal Respiratory: Generalized, Diminished, Wheezes Cardiovascular: Normal. negative: S3, S4, Murmur : Normal Auscultation: Bowel Sounds: Normal Palpation: Normal Tenderness: Normal Skin: Normal Musculoskeletal: Normal Psychiatric: Normal Mood Description: Calm Affect: Normal Speech Pattern: Clear, Appropriate - Laboratory and Diagnostics Result Diagrams: 11/26/18 04:46 11/26/18 04:46 Labs: 11/24/18 14:24 Blood Blood Culture - Preliminary 11/24/18 14:19 Blood Blood Culture - Preliminary Laboratory WBC 5.0 X10^3/uL (3.6-10.0) 11/26/18 04:46 RBC 4.75 X10^6/uL (4.7-6.0) 11/26/18 04:46 Hgb 13.5 g/dL (13.5-18.0) 11/26/18 04:46 Hct 39.6 % (42.0-54.0) L 11/26/18 04:46 MCV 83.4 fL (80.0-100.0) 11/26/18 04:46 MCH 28.5 pg (27.0-34.0) 11/26/18 04:46 MCHC 34.2 g/dL (33.0-35.0) 11/26/18 04:46 RDW 15.0 % (11.6-16.5) 11/26/18 04:46 Plt Count 177 X10^3/uL (150.0-450.0) 11/26/18 04:46 MPV 8.8 fL (7.4-11.0) 11/26/18 04:46 Neut % (Auto) 64.7 % (42.0-75.0) 11/26/18 04:46 Lymph % (Auto) 18.3 % (21.0-51.0) L 11/26/18 04:46 Delta % (Auto) 15.2 % (0.0-13.0) H 11/26/18 04:46 Eos % (Auto) 1.3 % (0.9-2.9) 11/26/18 04:46 Baso % (Auto) 0.5 % (0.2-1.0) 11/26/18 04:46 Neut # (Auto) 3.2 x10^3/uL (2.2-4.8) 11/26/18 04:46 Lymph # (Auto) 0.9 X10^3/uL (1.3-2.9) L 11/26/18 04:46 Delta # (Auto) 0.8 x10^3/uL (0.3-0.8) 11/26/18 04:46 Eos # (Auto) 0.1 x10^3/uL (0.0-0.2) 11/26/18 04:46 Baso # (Auto) 0.0 X10^3/uL (0.0-0.1) 11/26/18 04:46 Absolute Nucleated RBC 0.0 /100WBC 11/26/18 04:46 ESR 15 MM/HOUR (0-15) 11/25/18 10:24 Sodium 139 mmol/L (136-145) 11/26/18 04:46 Corrected Sodium TNP 11/26/18 04:46 Potassium 3.8 mmol/L (3.5-5.1) 11/26/18 04:46 Chloride 104 mmol/L (98-107) 11/26/18 04:46 Carbon Dioxide 25.8 mmol/L (21-32) 11/26/18 04:46 BUN 6 mg/dL (7-18) L 11/26/18 04:46 Creatinine 0.91 mg/dL (0.70-1.30) 11/26/18 04:46 Est GFR (MDRD) Af Amer > 60 (>60) 11/26/18 04:46 Est GFR (MDRD) Non-Af > 60 (>60) 11/26/18 04:46 Glucose 91 mg/dL (65-99) 11/26/18 04:46 Calcium 7.6 mg/dL (8.5-10.1) L 11/26/18 04:46 Corrected Calcium 9.0 mg/dL (8.5-10.1) 11/26/18 04:46 Magnesium 2.3 mg/dL (1.7-2.9) 11/26/18 04:46 Total Bilirubin 0.40 mg/dL (0.2-1.0) 11/26/18 04:46 AST 16 Units/L (15-37) 11/26/18 04:46 ALT 12 Units/L (12-78) 11/26/18 04:46 Alkaline Phosphatase 75 Units/L (46-116) 11/26/18 04:46 C-Reactive Protein 37.20 mg/L (0-3.0) H 11/25/18 10:24 Total Protein 6.6 g/dL (6.4-8.2) 11/26/18 04:46 Albumin 2.3 g/dL (3.4-5.0) L 11/26/18 04:46 Globulin 4.3 g/dL (2.5-4.5) 11/26/18 04:46 Albumin/Globulin Ratio 0.5 Ratio (1.1-2.1) L 11/26/18 04:46 Specimen Type Catherized urine 11/25/18 04:16 Urine Color Carole (YELLOW) 11/25/18 04:16 Urine Appearance Clear (CLEAR) 11/25/18 04:16 Urine pH 6.0 (5.0 - 8.0) 11/25/18 04:16 Ur Specific [place] 1.020 (1.000-1.030) 11/25/18 04:16 Urine Protein 2+ (NEGATIVE) 11/25/18 04:16 Urine Glucose (UA) Negative (NEGATIVE) 11/25/18 04:16 Urine Ketones Negative (NEGATIVE) 11/25/18 04:16 Urine Occult Blood 1+ (NEGATIVE) 11/25/18 04:16 Urine Nitrite Negative (NEGATIVE) 11/25/18 04:16 Urine Bilirubin 1+ (NEGATIVE) 11/25/18 04:16 Urine Urobilinogen 2+ (NORMAL) 11/25/18 04:16 Ur Leukocyte Esterase 1+ (NEGATIVE) 11/25/18 04:16 Urine RBC 0-2 /HPF (NONE SEEN) 11/25/18 04:16 Urine WBC 0-2 /HPF (NONE SEEN) 11/25/18 04:16 Ur Squamous Epith Cells Negative /HPF (NEGATIVE) 11/25/18 04:16 Urine Bacteria Negative /HPF (NEGATIVE) 11/25/18 04:16 Ur Culture Indicated? No/not indicated 11/25/18 04:16 - Plan (1) Bronchopneumonia Status: Acute Plan: IV ANTIBITOICS, RESPIRATORY TX, SUPPLEMENTAL OXYGEN, CONTINUE TO MONITOR (2) Pulmonary embolism Status: Acute Qualifiers: Pulmonary embolism type: unspecified Chronicity: unspecified Acute cor pulmonale presence: without acute cor pulmonale Qualified Code(s): I26.99 - Other pulmonary embolism without acute cor pulmonale Plan: XARELTO 15MG PO BID, CONTINUE TO MONITOR (3) COPD (chronic obstructive pulmonary disease) Status: Acute Qualifiers: COPD type: chronic bronchitis Chronic bronchitis type: unspecified Qualified Code(s): J42 - Unspecified chronic bronchitis Plan: RESPIRATORY TX, SUPPLEMENTAL OXYGEN, CONTINUE TO MONITOR
[2018-11-26] MEDS: CYMBALTA PO SCH (21:50)
[2018-11-27] MEDS: XOPENEX 1.25 MG/3 ML NEBULE NEB SCH ×4 (00:48→17:26)
[2018-11-27] MEDS ORDERED: NS 1/2 1000 ML IV 1,000 ML ONE (05:09)
[2018-11-27 05:45] LABS: BASOPHILS % (AUTO) 0.6 % (0.2-1.0); EOSINOPHILS # (AUTO) 0.1 x10^3/uL (0.0-0.2); EOSINOPHILS % (AUTO) 1.1 % (0.9-2.9); HEMATOCRIT 39.7 % (42.0-54.0); HEMOGLOBIN 13.5 g/dL (13.5-18.0); LYMPHOCYTES # (AUTO) 0.9 X10^3/uL (1.3-2.9); MEAN CORPUSCULAR HEMOGLOBIN 28.4 pg (27.0-34.0); MEAN CORPUSCULAR HGB CONC 34.1 g/dL (33.0-35.0); MEAN CORPUSCULAR VOLUME 83.3 fL (80.0-100.0); MEAN PLATELET VOLUME 8.7 fL (7.4-11.0); MONOCYTES # (AUTO) 1.1 x10^3/uL (0.3-0.8); MONOCYTES % (AUTO) 17.8 % (0.0-13.0); NEUTROPHILS # (AUTO) 3.9 x10^3/uL (2.2-4.8); NEUTROPHILS % (AUTO) 65.5 % (42.0-75.0); PLATELET COUNT 185 X10^3/uL (150.0-450.0); RED BLOOD COUNT 4.76 X10^6/uL (4.7-6.0); RED CELL DISTRIBUTION WIDTH 15.4 % (11.6-16.5); WHITE BLOOD COUNT 5.9 X10^3/uL (3.6-10.0)
[2018-11-27 05:59] LABS: ALANINE AMINOTRANSFERASE 12 Units/L (12-78); ALBUMIN 2.3 g/dL (3.4-5.0); ALKALINE PHOSPHATASE 84 Units/L (46-116); ASPARTATE AMINO TRANSFERASE 16 Units/L (15-37); BLOOD UREA NITROGEN 6 mg/dL (7-18); CALCIUM 7.7 mg/dL (8.5-10.1); CHLORIDE 101 mmol/L (98-107); COR CA(FOR HYPOALB) 9.1 mg/dL (8.5-10.1); CREATININE 0.81 mg/dL (0.70-1.30); SODIUM 135 mmol/L (136-145); TOTAL PROTEIN 6.6 g/dL (6.4-8.2); eGFR NON BLACK RACES > 60 (>60)
[2018-11-27] MEDS: FORTAZ or TAZICEF VIAL INJ 1 G in NS 100 ML IV + SPIKE MINIBAG* 100 ML IV SCH ×3 (06:17→22:42)
--- NOTE | 2018-11-27 06:18 | RAD ---
HISTORY: Shortness of breath Study: Chest AP portable Comparison: 11/26/2018 Findings: The heart is upper limits normal in size. The cliff are normal. The aorta is calcified and mildly ectatic. The lungs are free of acute alveolar infiltrates. Interstitial lung changes are stable. No pleural effusions are identified. The bony thorax is unremarkable. IMPRESSION: No significant change from the prior examination Reported By:
[2018-11-27] MEDS: LEVAQUIN PREMIX IV 500 MG 500 MG/100 ML BAG IV SCH (08:57)
[2018-11-27] MEDS: ARIMIDEX PO SCH (08:58)
[2018-11-27] MEDS: MILK OF MAGNESIA PO PRN (08:58)
[2018-11-27] MEDS: NAMENDA TAB 10 MG PO SCH ×2 (08:58→22:42)
[2018-11-27] MEDS: FLOMAX PO SCH (08:58)
[2018-11-27] MEDS: PERIACTIN TAB 4 MG PO SCH ×2 (08:58→22:42)
[2018-11-27] MEDS: COLACE CAP 100 MG PO PRN ×2 (08:59→22:42)
[2018-11-27] MEDS: PROSCAR PO SCH (08:59)
[2018-11-27] MEDS: VSL#3 PO SCH (08:59)
[2018-11-27] MEDS: XARELTO PO SCH ×2 (08:59→22:42)
[2018-11-27] MEDS: PriLOSEC PO SCH (08:59)
[2018-11-27] MEDS: ROBITUSSIN DM PO SCH ×4 (09:00→22:45)
[2018-11-27] MEDS: MEGACE PO SCH ×2 (11:44→22:41)
[2018-11-27] MEDS: ALBUMIN HUMAN 25%- 100 ML 100 ML IV SCH (11:44)
[2018-11-27] MEDS: NS 1/2 1000 ML IV 1,000 ML IV SCH (17:03)
--- NOTE | 2018-11-27 21:05 | PCM.PROG ---
Progress Note - Progress Note for Day of Date of Exam: 11/26/18 - Subjective Subjective: WAS ADMITTED YESTERDAY FOR TREATMENT OF BRONCHOPNEUMONIA, SHORTNESS OF BREATH, GENERALIZED WEAKNESS, DECREASED APPETITE, AND A PULMONARY EMBOLI. TODAY, HE IS ALERT AND ORIENTED, LYING IN BED ON MORNING ROUNDS. HE CONTINUES WITH COMPLAINTS OF SHORTNESS OF BREATH AND GENERALIZED WEAKNESS TODAY. HE ALSO REPORTS DIFFICULTY URINATING. ON EXAMINATION, HEART IS REGULAR IN RATE AND RHYTHM. BILATERAL LUNGS ARE NOTED WITH SCATTERED WHEEZING, DIMINISHED. ABDOMEN IS FLAT, SOFT, AND NON-TENDER. NORMAL BOWEL SOUNDS NOTED IN ALL QUADRANTS. HIS VITALS THIS MORNING ARE 98.5-86-22-92%-136/73. LABS WERE OBTAINED. ABNORMAL LAB VALUES INCLUDE THE FOLLOWING: HCT 39.6, BUN 6, CALCIUM 7.6, ALBUMIN 2.3. BLOOD CULTURES ARE PENDING. A CHEST XRAY WAS OBTAINED TODAY AND REVEALED: STABLE CHRONIC INTERSTITIAL LUNG CHANGES. NO ACUTE INFILTRATES. WE OBTAINED A VENOUS DOPPLER YESTERDAY. IT IS NEGATIVE FOR DVT. HE IS CURRENTLY RECEIVING IV FLUIDS, FORTAZ IV, LEVAQUIN IV, RESPIRATORY TREATMENTS, AND XARELTO 15MG PO BID. WE WILL START FLOMAX 0.4MG PO BID AND WILL OBTAIN AN ECHO. OTHERWISE, WE WILL CONTINUE WITH CURRENT PLAN OF CARE. WE PLAN TO FOLLOW UP WITH AM LABS AND CONTINUE TO MONITOR. - Past Medical Family Social History Past Med/Fam/Surg Hx: No changes since H&P Allergies: Allergies codeine Allergy (Verified 07/27/18 02:31) Sulfa (Sulfonamide Antibiotics) Allergy (Verified 07/27/18 02:31) - Review of Systems ROS: No change since H&P - Vital Signs and I&O's Vital Signs: Temperature 98.6 F Pulse Rate [Right Brachial] 84 Pulse Rate [Left Brachial] 86 Pulse Rate 73 Respiratory Rate 18 Blood Pressure [Left Arm] 116/73 Blood Pressure [Right Arm] 101/56 Blood Pressure 122/77 O2 Sat by Pulse Oximetry 96 Intake and Output: Intake & Output 11/25/18 11/26/18 11/27/18 11/28/18 11:59 11:59 11:59 11:59 Intake Total 840 / 840 840 / 840 1460 / 1460 1400 / 1400 Output Total 225 / 225 Balance 615 / 615 840 / 840 1460 / 1460 1400 / 1400 - Physical Exam Oriented: Normal Eyes: Normal Ear: Normal Nose: Normal Throat: Normal Respiratory: Generalized, Diminished, Wheezes Cardiovascular: Normal. negative: S3, S4, Murmur : Normal Auscultation: Bowel Sounds: Normal Palpation: Normal Tenderness: Normal Skin: Normal Musculoskeletal: Normal Psychiatric: Normal Mood Description: Calm Affect: Normal Speech Pattern: Clear, Appropriate - Laboratory and Diagnostics Result Diagrams: 11/27/18 04:53 11/27/18 04:53 Labs: 11/24/18 14:24 Blood Blood Culture - Preliminary 11/24/18 14:19 Blood Blood Culture - Preliminary Laboratory WBC 5.9 X10^3/uL (3.6-10.0) 11/27/18 04:53 RBC 4.76 X10^6/uL (4.7-6.0) 11/27/18 04:53 Hgb 13.5 g/dL (13.5-18.0) 11/27/18 04:53 Hct 39.7 % (42.0-54.0) L 11/27/18 04:53 MCV 83.3 fL (80.0-100.0) 11/27/18 04:53 MCH 28.4 pg (27.0-34.0) 11/27/18 04:53 MCHC 34.1 g/dL (33.0-35.0) 11/27/18 04:53 RDW 15.4 % (11.6-16.5) 11/27/18 04:53 Plt Count 185 X10^3/uL (150.0-450.0) 11/27/18 04:53 MPV 8.7 fL (7.4-11.0) 11/27/18 04:53 Neut % (Auto) 65.5 % (42.0-75.0) 11/27/18 04:53 Lymph % (Auto) 15.0 % (21.0-51.0) L 11/27/18 04:53 [place] % (Auto) 17.8 % (0.0-13.0) H 11/27/18 04:53 Eos % (Auto) 1.1 % (0.9-2.9) 11/27/18 04:53 Baso % (Auto) 0.6 % (0.2-1.0) 11/27/18 04:53 Neut # (Auto) 3.9 x10^3/uL (2.2-4.8) 11/27/18 04:53 Lymph # (Auto) 0.9 X10^3/uL (1.3-2.9) L 11/27/18 04:53 [place] # (Auto) 1.1 x10^3/uL (0.3-0.8) H 11/27/18 04:53 Eos # (Auto) 0.1 x10^3/uL (0.0-0.2) 11/27/18 04:53 Baso # (Auto) 0.0 X10^3/uL (0.0-0.1) 11/27/18 04:53 Absolute Nucleated RBC 0.1 /100WBC 11/27/18 04:53 ESR 15 MM/HOUR (0-15) 11/25/18 10:24 Sodium 135 mmol/L (136-145) L 11/27/18 04:53 Corrected Sodium TNP 11/27/18 04:53 Potassium 4.3 mmol/L (3.5-5.1) 11/27/18 04:53 Chloride 101 mmol/L (98-107) 11/27/18 04:53 Carbon Dioxide 26.0 mmol/L (21-32) 11/27/18 04:53 BUN 6 mg/dL (7-18) L 11/27/18 04:53 Creatinine 0.81 mg/dL (0.70-1.30) 11/27/18 04:53 Est GFR (MDRD) Af Amer > 60 (>60) 11/27/18 04:53 Est GFR (MDRD) Non-Af > 60 (>60) 11/27/18 04:53 Glucose 88 mg/dL (65-99) 11/27/18 04:53 Calcium 7.7 mg/dL (8.5-10.1) L 11/27/18 04:53 Corrected Calcium 9.1 mg/dL (8.5-10.1) 11/27/18 04:53 Magnesium 2.3 mg/dL (1.7-2.9) 11/26/18 04:46 Total Bilirubin 0.50 mg/dL (0.2-1.0) 11/27/18 04:53 AST 16 Units/L (15-37) 11/27/18 04:53 ALT 12 Units/L (12-78) 11/27/18 04:53 Alkaline Phosphatase 84 Units/L (46-116) 11/27/18 04:53 C-Reactive Protein 37.20 mg/L (0-3.0) H 11/25/18 10:24 Total Protein 6.6 g/dL (6.4-8.2) 11/27/18 04:53 Albumin 2.3 g/dL (3.4-5.0) L 11/27/18 04:53 Globulin 4.3 g/dL (2.5-4.5) 11/27/18 04:53 Albumin/Globulin Ratio 0.5 Ratio (1.1-2.1) L 11/27/18 04:53 Specimen Type Catherized urine 11/25/18 04:16 Urine Color Carole (YELLOW) 11/25/18 04:16 Urine Appearance Clear (CLEAR) 11/25/18 04:16 Urine pH 6.0 (5.0 - 8.0) 11/25/18 04:16 Ur Specific [place] 1.020 (1.000-1.030) 11/25/18 04:16 Urine Protein 2+ (NEGATIVE) 11/25/18 04:16 Urine Glucose (UA) Negative (NEGATIVE) 11/25/18 04:16 Urine Ketones Negative (NEGATIVE) 11/25/18 04:16 Urine Occult Blood 1+ (NEGATIVE) 11/25/18 04:16 Urine Nitrite Negative (NEGATIVE) 11/25/18 04:16 Urine Bilirubin 1+ (NEGATIVE) 11/25/18 04:16 Urine Urobilinogen 2+ (NORMAL) 11/25/18 04:16 Ur Leukocyte Esterase 1+ (NEGATIVE) 11/25/18 04:16 Urine RBC 0-2 /HPF (NONE SEEN) 11/25/18 04:16 Urine WBC 0-2 /HPF (NONE SEEN) 11/25/18 04:16 Ur Squamous Epith Cells Negative /HPF (NEGATIVE) 11/25/18 04:16 Urine Bacteria Negative /HPF (NEGATIVE) 11/25/18 04:16 Ur Culture Indicated? No/not indicated 11/25/18 04:16 - Plan (1) Bronchopneumonia Status: Acute Plan: IV ANTIBITOICS, RESPIRATORY TX, SUPPLEMENTAL OXYGEN, CONTINUE TO MONITOR (2) Pulmonary embolism Status: Acute Qualifiers: Pulmonary embolism type: unspecified Chronicity: unspecified Acute cor pulmonale presence: without acute cor pulmonale Qualified Code(s): I26.99 - Other pulmonary embolism without acute cor pulmonale Plan: XARELTO 15MG PO BID, CONTINUE TO MONITOR, OBTAIN ECHO (3) COPD (chronic obstructive pulmonary disease) Status: Acute Qualifiers: COPD type: chronic bronchitis Chronic bronchitis type: unspecified Qualified Code(s): J42 - Unspecified chronic bronchitis Plan: RESPIRATORY TX, SUPPLEMENTAL OXYGEN, CONTINUE TO MONITOR (4) Urinary retention Status: Acute Plan: FLOMAX 0.4MG PO BID, CONTINUE TO MONITOR
[2018-11-27] MEDS: CYMBALTA PO SCH (22:45)
[2018-11-28] MEDS: XOPENEX 1.25 MG/3 ML NEBULE NEB SCH ×3 (00:55→17:50)
[2018-11-28] MEDS: FORTAZ or TAZICEF VIAL INJ 1 G in NS 100 ML IV + SPIKE MINIBAG* 100 ML IV SCH ×3 (05:41→22:10)
[2018-11-28] MEDS ORDERED: NS 1/2 1000 ML IV 1,000 ML ONE (05:49)
[2018-11-28] MEDS: NS 1/2 1000 ML IV 1,000 ML IV SCH ×2 (05:50→16:10)
[2018-11-28 06:18] LABS: BASOPHILS % (AUTO) 0.4 % (0.2-1.0); EOSINOPHILS # (AUTO) 0.1 x10^3/uL (0.0-0.2); EOSINOPHILS % (AUTO) 1.5 % (0.9-2.9); HEMATOCRIT 38.6 % (42.0-54.0); HEMOGLOBIN 13.2 g/dL (13.5-18.0); LYMPHOCYTES # (AUTO) 1.3 X10^3/uL (1.3-2.9); LYMPHOCYTES % (AUTO) 22.2 % (21.0-51.0); MEAN CORPUSCULAR HEMOGLOBIN 28.5 pg (27.0-34.0); MEAN CORPUSCULAR HGB CONC 34.3 g/dL (33.0-35.0); MEAN CORPUSCULAR VOLUME 83.1 fL (80.0-100.0); MEAN PLATELET VOLUME 8.1 fL (7.4-11.0); MONOCYTES # (AUTO) 0.9 x10^3/uL (0.3-0.8); MONOCYTES % (AUTO) 15.8 % (0.0-13.0); NEUTROPHILS # (AUTO) 3.5 x10^3/uL (2.2-4.8); NEUTROPHILS % (AUTO) 60.1 % (42.0-75.0); PLATELET COUNT 206 X10^3/uL (150.0-450.0); RED BLOOD COUNT 4.64 X10^6/uL (4.7-6.0); RED CELL DISTRIBUTION WIDTH 15.1 % (11.6-16.5); WHITE BLOOD COUNT 5.9 X10^3/uL (3.6-10.0)
[2018-11-28 06:35] LABS: ALANINE AMINOTRANSFERASE 13 Units/L (12-78); ALBUMIN 2.7 g/dL (3.4-5.0); ALKALINE PHOSPHATASE 77 Units/L (46-116); ASPARTATE AMINO TRANSFERASE 16 Units/L (15-37); BLOOD UREA NITROGEN 8 mg/dL (7-18); CALCIUM 8.2 mg/dL (8.5-10.1); CARBON DIOXIDE 24.4 mmol/L (21-32); CHLORIDE 102 mmol/L (98-107); COR CA(FOR HYPOALB) 9.2 mg/dL (8.5-10.1); CREATININE 0.82 mg/dL (0.70-1.30); SODIUM 134 mmol/L (136-145); eGFR NON BLACK RACES > 60 (>60)
--- NOTE | 2018-11-28 06:56 | RAD ---
HISTORY: Shortness of breath Study: Chest AP portable Comparison: 11/27/2018 Findings: The heart is upper limits normal in size. No congestive heart failure is noted. The cliff are normal. The aorta is calcified and mildly ectatic. Interstitial lung changes are present not significantly different from the prior examination. No acute alveolar infiltrates or pleural effusions are identified. The bony thorax is unremarkable with the exception of bilateral chronic rotator cuff disease. IMPRESSION: Interstitial lung changes, stable Reported By:
[2018-11-28] MEDS: ALBUMIN HUMAN 25%- 100 ML 100 ML IV SCH (10:22)
[2018-11-28] MEDS: PriLOSEC PO SCH (10:23)
[2018-11-28] MEDS: FLOMAX PO SCH (10:24)
[2018-11-28] MEDS: NAMENDA TAB 10 MG PO SCH ×2 (10:24→22:09)
[2018-11-28] MEDS: XARELTO PO SCH ×2 (10:24→22:08)
[2018-11-28] MEDS: MEGACE PO SCH ×2 (10:24→22:09)
[2018-11-28] MEDS: VSL#3 PO SCH (10:24)
[2018-11-28] MEDS: ARIMIDEX PO SCH (10:25)
[2018-11-28] MEDS: PERIACTIN TAB 4 MG PO SCH ×2 (10:25→22:09)
[2018-11-28] MEDS: PROSCAR PO SCH (10:25)
[2018-11-28] MEDS: ROBITUSSIN DM PO SCH ×4 (10:25→22:09)
[2018-11-28] MEDS: LEVAQUIN PREMIX IV 500 MG 500 MG/100 ML BAG IV SCH (10:30)
[2018-11-28] MEDS: CYMBALTA PO SCH (22:09)
[2018-11-28] MEDS: COLACE CAP 100 MG PO PRN (22:09)
[2018-11-29] MEDS: XOPENEX 1.25 MG/3 ML NEBULE NEB SCH ×5 (00:26→16:47)
[2018-11-29] MEDS ORDERED: NS 1/2 1000 ML IV 1,000 ML ONE (05:05)
[2018-11-29] MEDS: FORTAZ or TAZICEF VIAL INJ 1 G in NS 100 ML IV + SPIKE MINIBAG* 100 ML IV SCH ×3 (05:24→21:44)
[2018-11-29] MEDS: NS 1/2 1000 ML IV 1,000 ML IV SCH ×2 (05:25→20:52)
--- NOTE | 2018-11-29 05:52 | RAD ---
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 There is no evidence for developing consolidation, pneumothorax or pleural fluid. Impression: No acute findings or significant interval change. Reported By:
[2018-11-29 06:31] LABS: BASOPHILS % (AUTO) 0.7 % (0.2-1.0); EOSINOPHILS # (AUTO) 0.1 x10^3/uL (0.0-0.2); EOSINOPHILS % (AUTO) 1.6 % (0.9-2.9); HEMATOCRIT 37.5 % (42.0-54.0); HEMOGLOBIN 12.8 g/dL (13.5-18.0); LYMPHOCYTES % (AUTO) 17.5 % (21.0-51.0); MEAN CORPUSCULAR HEMOGLOBIN 28.4 pg (27.0-34.0); MEAN CORPUSCULAR HGB CONC 34.1 g/dL (33.0-35.0); MEAN CORPUSCULAR VOLUME 83.2 fL (80.0-100.0); MEAN PLATELET VOLUME 7.9 fL (7.4-11.0); MONOCYTES # (AUTO) 0.9 x10^3/uL (0.3-0.8); MONOCYTES % (AUTO) 15.7 % (0.0-13.0); NEUTROPHILS # (AUTO) 3.8 x10^3/uL (2.2-4.8); NEUTROPHILS % (AUTO) 64.5 % (42.0-75.0); PLATELET COUNT 225 X10^3/uL (150.0-450.0); RED BLOOD COUNT 4.51 X10^6/uL (4.7-6.0); RED CELL DISTRIBUTION WIDTH 15.4 % (11.6-16.5); WHITE BLOOD COUNT 5.9 X10^3/uL (3.6-10.0)
[2018-11-29 06:54] LABS: ALANINE AMINOTRANSFERASE 15 Units/L (12-78); ALBUMIN 2.8 g/dL (3.4-5.0); ALKALINE PHOSPHATASE 67 Units/L (46-116); ASPARTATE AMINO TRANSFERASE 19 Units/L (15-37); BLOOD UREA NITROGEN 10 mg/dL (7-18); CARBON DIOXIDE 24.7 mmol/L (21-32); CHLORIDE 105 mmol/L (98-107); CREATININE 0.83 mg/dL (0.70-1.30); SODIUM 136 mmol/L (136-145); TOTAL PROTEIN 6.9 g/dL (6.4-8.2); eGFR NON BLACK RACES > 60 (>60)
[2018-11-29 06:55] LABS: ANTI-NUCLEAR ANTIBODY TEST None Detected (None Detected); PROTEIN C ACTIVITY 99 % (83-168)
[2018-11-29] MEDS: ALBUMIN HUMAN 25%- 100 ML 100 ML IV SCH (09:59)
[2018-11-29] MEDS: LEVAQUIN PREMIX IV 500 MG 500 MG/100 ML BAG IV SCH (09:59)
[2018-11-29] MEDS: MEGACE PO SCH ×2 (10:02→20:46)
[2018-11-29] MEDS: PriLOSEC PO SCH (10:02)
[2018-11-29] MEDS: NAMENDA TAB 10 MG PO SCH ×2 (10:02→20:46)
[2018-11-29] MEDS: ARIMIDEX PO SCH (10:02)
[2018-11-29] MEDS: PERIACTIN TAB 4 MG PO SCH ×2 (10:02→20:46)
[2018-11-29] MEDS: VSL#3 PO SCH (10:02)
[2018-11-29] MEDS: ROBITUSSIN DM PO SCH ×4 (10:02→20:47)
[2018-11-29] MEDS: XARELTO PO SCH ×2 (10:02→20:46)
[2018-11-29] MEDS: PROSCAR PO SCH (10:02)
[2018-11-29] MEDS: FLOMAX PO SCH (10:03)
[2018-11-29] MEDS: CYMBALTA PO SCH (20:46)
[2018-11-29] MEDS: COLACE CAP 100 MG PO PRN (20:47)
--- NOTE | 2018-11-29 21:43 | PCM.PROG ---
Progress Note - Progress Note for Day of Date of Exam: 11/27/18 - Subjective Subjective: WAS ADMITTED YESTERDAY FOR TREATMENT OF BRONCHOPNEUMONIA, SHORTNESS OF BREATH, GENERALIZED WEAKNESS, DECREASED APPETITE, AND A PULMONARY EMBOLI. TODAY, HE IS ALERT AND ORIENTED, LYING IN BED ON MORNING ROUNDS. HE CONTINUES WITH COMPLAINTS OF SHORTNESS OF BREATH AND GENERALIZED WEAKNESS TODAY. HE CONTINUES WITH A DECREASED APPETITE. ON EXAMINATION, HEART IS REGULAR IN RATE AND RHYTHM. BILATERAL LUNGS ARE NOTED WITH SCATTERED WHEEZING, DIMINISHED. ABDOMEN IS FLAT, SOFT, AND NON-TENDER. NORMAL BOWEL SOUNDS NOTED IN ALL QUADRANTS. HIS VITALS THIS MORNING ARE 98.0-90-18-95%-107/64. LABS WERE OBTAINED. ABNORMAL LAB VALUES INCLUDE THE FOLLOWING: HCT 39.7, SODIUM 135, BUN 6, CALCIUM 7.7, ALBUMIN 2.3. BLOOD CULTURES ARE PENDING. A CHEST XRAY WAS OBTAINED TODAY AND REVEALED: No significant change from the prior examination. WE OBTAINED AN ECHO. EJECTION FRACTION IS 60%, RSVP 14.0. HE IS CURRENTLY RECEIVING IV FLUIDS, FORTAZ IV, LEVAQUIN IV, RESPIRATORY TREATMENTS, XARELTO 15MG PO BID, AND FLOMAX 0.4MG BID. WE WILL START [place] 40MG PO BID, ALBUMIN 25% IV DAILY, AND HAVE PHYSICAL THERAPY WORK WITH PATIENT TODAY. OTHERWISE, WE WILL CONTINUE WITH CURRENT PLAN OF CARE. WE PLAN TO FOLLOW UP WITH AM LABS AND CONTINUE TO MONITOR. - Past Medical Family Social History Past Med/Fam/Surg Hx: No changes since H&P Allergies: Allergies codeine Allergy (Verified 07/27/18 02:31) Sulfa (Sulfonamide Antibiotics) Allergy (Verified 07/27/18 02:31) - Review of Systems ROS: No change since H&P - Vital Signs and I&O's Vital Signs: Temperature 98.2 F Pulse Rate [Right Brachial] 100 Pulse Rate [Left Brachial] 86 Pulse Rate 80 Respiratory Rate 24 Blood Pressure [Left Arm] 116/69 Blood Pressure [Right Arm] 111/65 Blood Pressure 122/77 O2 Sat by Pulse Oximetry 93 Intake and Output: Intake & Output 11/27/18 11/28/18 11/29/18 11/30/18 11:59 11:59 11:59 11:59 Intake Total 1460 / 1460 2580 / 2580 1460 / 1460 740 / 740 Balance 1460 / 1460 2580 / 2580 1460 / 1460 740 / 740 - Physical Exam Oriented: Normal Eyes: Normal Ear: Normal Nose: Normal Throat: Normal Respiratory: Generalized, Diminished, Wheezes Cardiovascular: Normal. negative: S3, S4, Murmur : Normal Auscultation: Bowel Sounds: Normal Tenderness: Normal Skin: Normal Musculoskeletal: Normal Psychiatric: Normal Mood Description: Calm Affect: Normal Speech Pattern: Clear, Appropriate - Laboratory and Diagnostics Result Diagrams: 11/29/18 05:45 11/29/18 05:45 Labs: 11/24/18 14:24 Blood Blood Culture - Final 11/24/18 14:19 Blood Blood Culture - Final Laboratory WBC 5.9 X10^3/uL (3.6-10.0) 11/29/18 05:45 RBC 4.51 X10^6/uL (4.7-6.0) L 11/29/18 05:45 Hgb 12.8 g/dL (13.5-18.0) L 11/29/18 05:45 Hct 37.5 % (42.0-54.0) L 11/29/18 05:45 MCV 83.2 fL (80.0-100.0) 11/29/18 05:45 MCH 28.4 pg (27.0-34.0) 11/29/18 05:45 MCHC 34.1 g/dL (33.0-35.0) 11/29/18 05:45 RDW 15.4 % (11.6-16.5) 11/29/18 05:45 Plt Count 225 X10^3/uL (150.0-450.0) 11/29/18 05:45 MPV 7.9 fL (7.4-11.0) 11/29/18 05:45 Neut % (Auto) 64.5 % (42.0-75.0) 11/29/18 05:45 Lymph % (Auto) 17.5 % (21.0-51.0) L 11/29/18 05:45 [place] % (Auto) 15.7 % (0.0-13.0) H 11/29/18 05:45 Eos % (Auto) 1.6 % (0.9-2.9) 11/29/18 05:45 Baso % (Auto) 0.7 % (0.2-1.0) 11/29/18 05:45 Neut # (Auto) 3.8 x10^3/uL (2.2-4.8) 11/29/18 05:45 Lymph # (Auto) 1.0 X10^3/uL (1.3-2.9) L 11/29/18 05:45 [place] # (Auto) 0.9 x10^3/uL (0.3-0.8) H 11/29/18 05:45 Eos # (Auto) 0.1 x10^3/uL (0.0-0.2) 11/29/18 05:45 Baso # (Auto) 0.0 X10^3/uL (0.0-0.1) 11/29/18 05:45 Absolute Nucleated RBC 0.0 /100WBC 11/29/18 05:45 ESR 15 MM/HOUR (0-15) 11/25/18 10:24 Prot C Funct Activity 99 % (83-168) 11/25/18 10:24 APC Resistance Ratio 5.17 (>=2.00) 11/25/18 10:24 Protein S Activity 73 % (66-143) 11/25/18 10:24 Antithrombin III Activ 76 % (76-128) 11/25/18 10:24 Sodium 136 mmol/L (136-145) 11/29/18 05:45 Corrected Sodium TNP 11/29/18 05:45 Potassium 4.1 mmol/L (3.5-5.1) 11/29/18 05:45 Chloride 105 mmol/L (98-107) 11/29/18 05:45 Carbon Dioxide 24.7 mmol/L (21-32) 11/29/18 05:45 BUN 10 mg/dL (7-18) 11/29/18 05:45 Creatinine 0.83 mg/dL (0.70-1.30) 11/29/18 05:45 Est GFR (MDRD) Af Amer > 60 (>60) 11/29/18 05:45 Est GFR (MDRD) Non-Af > 60 (>60) 11/29/18 05:45 Glucose 85 mg/dL (65-99) 11/29/18 05:45 Calcium 8.0 mg/dL (8.5-10.1) L 11/29/18 05:45 Corrected Calcium 9.0 mg/dL (8.5-10.1) 11/29/18 05:45 Magnesium 2.3 mg/dL (1.7-2.9) 11/26/18 04:46 Total Bilirubin 0.40 mg/dL (0.2-1.0) 11/29/18 05:45 AST 19 Units/L (15-37) 11/29/18 05:45 ALT 15 Units/L (12-78) 11/29/18 05:45 Alkaline Phosphatase 67 Units/L (46-116) 11/29/18 05:45 C-Reactive Protein 37.20 mg/L (0-3.0) H 11/25/18 10:24 Total Protein 6.9 g/dL (6.4-8.2) 11/29/18 05:45 Albumin 2.8 g/dL (3.4-5.0) L 11/29/18 05:45 Globulin 4.1 g/dL (2.5-4.5) 11/29/18 05:45 Albumin/Globulin Ratio 0.7 Ratio (1.1-2.1) L 11/29/18 05:45 Homocysteine 7 umol/L (<=10) 11/25/18 10:24 Specimen Type Catherized urine 11/25/18 04:16 Urine Color [place] (YELLOW) 11/25/18 04:16 Urine Appearance Clear (CLEAR) 11/25/18 04:16 Urine pH 6.0 (5.0 - 8.0) 11/25/18 04:16 Ur Specific [place] 1.020 (1.000-1.030) 11/25/18 04:16 Urine Protein 2+ (NEGATIVE) 11/25/18 04:16 Urine Glucose (UA) Negative (NEGATIVE) 11/25/18 04:16 Urine Ketones Negative (NEGATIVE) 11/25/18 04:16 Urine Occult Blood 1+ (NEGATIVE) 11/25/18 04:16 Urine Nitrite Negative (NEGATIVE) 11/25/18 04:16 Urine Bilirubin 1+ (NEGATIVE) 11/25/18 04:16 Urine Urobilinogen 2+ (NORMAL) 11/25/18 04:16 Ur Leukocyte Esterase 1+ (NEGATIVE) 11/25/18 04:16 Urine RBC 0-2 /HPF (NONE SEEN) 11/25/18 04:16 Urine WBC 0-2 /HPF (NONE SEEN) 11/25/18 04:16 Ur Squamous Epith Cells Negative /HPF (NEGATIVE) 11/25/18 04:16 Urine Bacteria Negative /HPF (NEGATIVE) 11/25/18 04:16 Ur Culture Indicated? No/not indicated 11/25/18 04:16 LUIS Screen None detected (None Detected) 11/25/18 10:24 LUIS Titer TNP 11/25/18 10:24 LUIS Pattern TNP 11/25/18 10:24 - Plan (1) Bronchopneumonia Status: Acute Plan: IV ANTIBITOICS, RESPIRATORY TX, SUPPLEMENTAL OXYGEN, CONTINUE TO MONITOR (2) Pulmonary embolism Status: Acute Qualifiers: Pulmonary embolism type: unspecified Chronicity: unspecified Acute cor pulmonale presence: without acute cor pulmonale Qualified Code(s): I26.99 - Other pulmonary embolism without acute cor pulmonale Plan: XARELTO 15MG PO BID, CONTINUE TO MONITOR, OBTAIN ECHO (3) COPD (chronic obstructive pulmonary disease) Status: Acute Qualifiers: COPD type: chronic bronchitis Chronic bronchitis type: unspecified Qualified Code(s): J42 - Unspecified chronic bronchitis Plan: RESPIRATORY TX, SUPPLEMENTAL OXYGEN, CONTINUE TO MONITOR (4) Urinary retention Status: Acute Plan: FLOMAX 0.4MG PO BID, CONTINUE TO MONITOR (5) Hypoalbuminemia due to protein-calorie malnutrition Status: Acute Plan: ALBUMIN 25% IV DAILY, CONTINUE TO MONITOR
[2018-11-30] MEDS: XOPENEX 1.25 MG/3 ML NEBULE NEB SCH ×6 (00:17→17:11)
[2018-11-30] MEDS ORDERED: NS 1/2 1000 ML IV 1,000 ML ONE (00:39)
[2018-11-30] MEDS: NS 1/2 1000 ML IV 1,000 ML IV SCH ×2 (00:42→14:56)
[2018-11-30] MEDS: FORTAZ or TAZICEF VIAL INJ 1 G in NS 100 ML IV + SPIKE MINIBAG* 100 ML IV SCH ×2 (05:43→16:26)
[2018-11-30 06:15] LABS: BASOPHILS % (AUTO) 0.6 % (0.2-1.0); EOSINOPHILS # (AUTO) 0.1 x10^3/uL (0.0-0.2); EOSINOPHILS % (AUTO) 2.3 % (0.9-2.9); LYMPHOCYTES # (AUTO) 1.2 X10^3/uL (1.3-2.9); LYMPHOCYTES % (AUTO) 19.2 % (21.0-51.0); MEAN CORPUSCULAR HEMOGLOBIN 28.5 pg (27.0-34.0); MEAN CORPUSCULAR HGB CONC 34.3 g/dL (33.0-35.0); MEAN CORPUSCULAR VOLUME 83.1 fL (80.0-100.0); MEAN PLATELET VOLUME 7.8 fL (7.4-11.0); MONOCYTES # (AUTO) 0.9 x10^3/uL (0.3-0.8); NEUTROPHILS % (AUTO) 63.9 % (42.0-75.0); PLATELET COUNT 243 X10^3/uL (150.0-450.0); RED BLOOD COUNT 4.57 X10^6/uL (4.7-6.0); RED CELL DISTRIBUTION WIDTH 15.6 % (11.6-16.5); WHITE BLOOD COUNT 6.2 X10^3/uL (3.6-10.0)
[2018-11-30 06:22] LABS: ALANINE AMINOTRANSFERASE 25 Units/L (12-78); ALBUMIN 3.1 g/dL (3.4-5.0); ALKALINE PHOSPHATASE 64 Units/L (46-116); ASPARTATE AMINO TRANSFERASE 29 Units/L (15-37); BLOOD UREA NITROGEN 10 mg/dL (7-18); CALCIUM 8.4 mg/dL (8.5-10.1); CARBON DIOXIDE 22.3 mmol/L (21-32); CHLORIDE 101 mmol/L (98-107); COR CA(FOR HYPOALB) 9.1 mg/dL (8.5-10.1); CREATININE 0.86 mg/dL (0.70-1.30); SODIUM 133 mmol/L (136-145); TOTAL PROTEIN 7.3 g/dL (6.4-8.2); eGFR NON BLACK RACES > 60 (>60)
[2018-11-30 06:24] LABS: PROTHROMBIN G20210A Negative
--- NOTE | 2018-11-30 07:21 | RAD ---
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 No evolving consolidation is identified. The heart size is stable. Uncoiled configuration of the thoracic aorta is again redemonstrated. No pleural fluid collections Impression: Interstitial fibrous lung changes with no evolving consolidation. Reported By:
[2018-11-30] MEDS: PriLOSEC PO SCH (09:55)
[2018-11-30] MEDS: PROSCAR PO SCH (09:55)
[2018-11-30] MEDS: FLOMAX PO SCH (09:55)
[2018-11-30] MEDS: PERIACTIN TAB 4 MG PO SCH (09:55)
[2018-11-30] MEDS: MEGACE PO SCH (09:56)
[2018-11-30] MEDS: ROBITUSSIN DM PO SCH ×3 (09:56→16:27)
[2018-11-30] MEDS: ALBUMIN HUMAN 25%- 100 ML 100 ML IV SCH (09:56)
[2018-11-30] MEDS: ARIMIDEX PO SCH (09:56)
[2018-11-30] MEDS: XARELTO PO SCH (09:56)
[2018-11-30] MEDS: NAMENDA TAB 10 MG PO SCH (09:56)
[2018-11-30] MEDS: LEVAQUIN PREMIX IV 500 MG 500 MG/100 ML BAG IV SCH (11:39)
[2018-11-30] MEDS: VSL#3 PO SCH (14:53)
[2018-11-30] MEDS ORDERED: FORTAZ or TAZICEF VIAL INJ ONE (15:46)
[2018-11-30] MEDS ORDERED: NS 100 ML IV 100 ML ONE (15:47)
[2018-11-30 16:24] VITALS: BP 106/64
[2018-11-30] MEDS ORDERED: NS 1/2 1000 ML IV ONE (19:41)
[2018-12-01] MEDS ORDERED: XOPENEX 1.25 MG/3 ML NEBULE NEB ONE ×4 (05:45→17:00)
[2018-12-01] MEDS ORDERED: NS 1/2 1000 ML IV IV ONE ×2 (06:00→21:00)
[2018-12-01] MEDS ORDERED: FLOMAX PO ONE (09:00)
[2018-12-01] MEDS ORDERED: ARIMIDEX PO ONE (09:00)
[2018-12-01] MEDS ORDERED: MEGACE PO ONE ×2 (09:00→21:00)
[2018-12-01] MEDS ORDERED: ALBUMIN HUMAN 25%- 100 ML IV ONE (09:00)
[2018-12-01] MEDS ORDERED: ROCEPHIN VIAL 1 GRAM IVP ONE (09:00)
[2018-12-01] MEDS ORDERED: VSL#3 PO ONE (09:00)
[2018-12-01] MEDS ORDERED: XARELTO PO ONE ×2 (09:00→21:00)
[2018-12-01] MEDS ORDERED: LEVAQUIN PREMIX IV 500 MG IV ONE (09:00)
[2018-12-01] MEDS ORDERED: NAMENDA TAB 10 MG PO ONE ×2 (09:00→21:00)
[2018-12-01] MEDS ORDERED: PriLOSEC PO ONE (09:00)
[2018-12-01] MEDS ORDERED: ROBITUSSIN DM PO ONE ×4 (09:00→21:00)
[2018-12-01] MEDS ORDERED: PROSCAR PO ONE (09:00)
[2018-12-01] MEDS ORDERED: PERIACTIN TAB 4 MG PO ONE (09:00)
[2018-12-01] MEDS ORDERED: CYMBALTA PO ONE (21:00)
[2018-12-02] MEDS ORDERED: PriLOSEC PO ONE (09:36)
[2018-12-02] MEDS ORDERED: PROSCAR PO ONE (09:36)
[2018-12-02] MEDS ORDERED: ROBITUSSIN DM PO ONE ×2 (09:36→12:37)
[2018-12-02] MEDS ORDERED: ALBUMIN HUMAN 25%- 100 ML IV ONE (09:36)
[2018-12-02] MEDS ORDERED: NAMENDA TAB 10 MG PO ONE (09:36)
[2018-12-02] MEDS ORDERED: LEVAQUIN PREMIX IV 500 MG IV ONE (09:36)
[2018-12-02] MEDS ORDERED: XARELTO PO ONE (09:36)
[2018-12-02] MEDS ORDERED: FLOMAX PO ONE (09:36)
[2018-12-02] MEDS ORDERED: ARIMIDEX PO ONE (09:36)
[2018-12-02] MEDS ORDERED: MEGACE PO ONE (09:36)
[2018-12-02] MEDS ORDERED: VSL#3 PO ONE (09:36)
[2018-12-02] MEDS ORDERED: ROCEPHIN VIAL 1 GRAM IVP ONE (09:36)
[2018-12-08 09:29] LABS: ASPARTATE AMINO TRANSFERASE 58 Units/L (15-37); BLOOD UREA NITROGEN 12 mg/dL (7-18); CALCIUM 8.6 mg/dL (8.5-10.1); CHLORIDE 101 mmol/L (98-107); CREATININE 0.86 mg/dL (0.70-1.30); SODIUM 135 mmol/L (136-145); eGFR NON BLACK RACES > 60 (>60)
[2018-12-08 09:30] LABS: ALANINE AMINOTRANSFERASE 47 Units/L (12-78); ALBUMIN 3.2 g/dL (3.4-5.0); ALKALINE PHOSPHATASE 63 Units/L (46-116); COR CA(FOR HYPOALB) 9.2 mg/dL (8.5-10.1); HEMATOCRIT 38.2 % (42.0-54.0); HEMOGLOBIN 13.2 g/dL (13.5-18.0); MEAN CORPUSCULAR HEMOGLOBIN 28.5 pg (27.0-34.0); MEAN CORPUSCULAR HGB CONC 34.6 g/dL (33.0-35.0); MEAN CORPUSCULAR VOLUME 82.4 fL (80.0-100.0); RED BLOOD COUNT 4.63 X10^6/uL (4.7-6.0); TOTAL PROTEIN 7.4 g/dL (6.4-8.2); WHITE BLOOD COUNT 5.7 X10^3/uL (3.6-10.0)
[2018-12-08 09:31] LABS: BASOPHILS # (AUTO) 0.1 X10^3/uL (0.0-0.1); BASOPHILS % (AUTO) 0.9 % (0.2-1.0); EOSINOPHILS # (AUTO) 0.1 x10^3/uL (0.0-0.2); EOSINOPHILS % (AUTO) 2.3 % (0.9-2.9); LYMPHOCYTES # (AUTO) 1.2 X10^3/uL (1.3-2.9); LYMPHOCYTES % (AUTO) 20.3 % (21.0-51.0); MEAN PLATELET VOLUME 7.8 fL (7.4-11.0); MONOCYTES # (AUTO) 0.9 x10^3/uL (0.3-0.8); MONOCYTES % (AUTO) 15.6 % (0.0-13.0); NEUTROPHILS # (AUTO) 3.5 x10^3/uL (2.2-4.8); NEUTROPHILS % (AUTO) 60.9 % (42.0-75.0); PLATELET COUNT 253 X10^3/uL (150.0-450.0); RED CELL DISTRIBUTION WIDTH 15.4 % (11.6-16.5)
[2018-12-08 15:08] LABS: ALANINE AMINOTRANSFERASE 53 Units/L (12-78); ALKALINE PHOSPHATASE 61 Units/L (46-116); ASPARTATE AMINO TRANSFERASE 50 Units/L (15-37); BLOOD UREA NITROGEN 14 mg/dL (7-18); CALCIUM 8.5 mg/dL (8.5-10.1); CARBON DIOXIDE 21.8 mmol/L (21-32); CHLORIDE 101 mmol/L (98-107); SODIUM 134 mmol/L (136-145); TOTAL PROTEIN 7.6 g/dL (6.4-8.2); eGFR NON BLACK RACES > 60 (>60)
[2018-12-08 15:09] LABS: ALBUMIN 3.4 g/dL (3.4-5.0); HEMATOCRIT 38.4 % (42.0-54.0); HEMOGLOBIN 13.2 g/dL (13.5-18.0); MEAN CORPUSCULAR HEMOGLOBIN 28.5 pg (27.0-34.0); MEAN CORPUSCULAR HGB CONC 34.4 g/dL (33.0-35.0); MEAN CORPUSCULAR VOLUME 82.9 fL (80.0-100.0); PLATELET COUNT 256 X10^3/uL (150.0-450.0); RED BLOOD COUNT 4.63 X10^6/uL (4.7-6.0); RED CELL DISTRIBUTION WIDTH 15.4 % (11.6-16.5); WHITE BLOOD COUNT 6.2 X10^3/uL (3.6-10.0)
[2018-12-08 15:10] LABS: BASOPHILS % (AUTO) 0.7 % (0.2-1.0); EOSINOPHILS # (AUTO) 0.1 x10^3/uL (0.0-0.2); EOSINOPHILS % (AUTO) 2.3 % (0.9-2.9); LYMPHOCYTES % (AUTO) 16.8 % (21.0-51.0); MONOCYTES # (AUTO) 0.9 x10^3/uL (0.3-0.8); MONOCYTES % (AUTO) 14.2 % (0.0-13.0); NEUTROPHILS # (AUTO) 4.1 x10^3/uL (2.2-4.8)
== END 2018-12-02 15:35 | disposition home or self-care (01) | DRG 193 ==
LOC: MED/SURG
PROVIDERS: ADMIT Internal Medicine; ATTEND Internal Medicine
DX: R33.9 Retention of urine, unspecified; R62.7 Adult failure to thrive; R79.82 Elevated C-reactive protein (CRP); R06.02 Shortness of breath; J44.9 Chronic obstructive pulmonary disease, unspecified; F32.89 Other specified depressive episodes; I10 Essential (primary) hypertension; Z79.01 Long term (current) use of anticoagulants; J18.0 Bronchopneumonia, unspecified organism; E78.2 Mixed hyperlipidemia; I26.99 Other pulmonary embolism without acute cor pulmonale; E03.8 Other specified hypothyroidism; R26.89 Other abnormalities of gait and mobility; R53.1 Weakness; E11.65 Type 2 diabetes mellitus with hyperglycemia
CPT/HCPCS: 36415; 71010; 71020; 71045; 71046; 71275; 80053; 81001; 81240; 82615; 83090; 83735; 85025; 85300; 85303; 85305; 85306; 85307; 85597; 85610; 85613; 85635; 85652; 85670; 85730; 85732; 86038; 86140; 86308; 87040; 93306; 93970; 94640; 94760; 94762; 97110; 97116; 97162; 97165; 97530; 97535; A4222; P9047; S0138; S0170; S0179; G0378; J0696; J0713; J1956; J3475; J3480; J7050